=== PATIENT | female | born 1930 | race Caucasian/White ===

== ENCOUNTER 2017-07-23 09:29 | Inpatient (IN) | payer OTHER ==
[~2017-07-23] VITALS: Ht 158.8 cm; Wt 75.8 kg
[~2017-07-23 09:29] MED LIST: ALENDRONATE SOD70 M2 PO; AMLODIPINE BESY10 M1 PO; ASPIRIN EC81 M1 PO; BETIMOL5 M1 OPH; CALCIUM 600 +1 EAC2 PO; COSOPT OCUMETER10 ML OPH; COZAAR50 M1 PO; DORZOLAMIDE HYD10 ML OPH; ECOTRIN325 MG PO; FUROSEMIDE20 M1 PO; GELNIQUE100 MG/GM TOP; IMODIUM A-D2 M1 PO; LANTUS SOL100 UNIT/1 SC; LEVEMIR100 UNIT/1 SC; LEVOTHYROXIN0.137 MG PO; LEVOTHYROXINE0.15 MG PO; LEVOTHYROXINE137 MCG PO; LIDODERM 5% PAT1 PAT TOP; LOPRESSOR50 M1 PO; LOVASTATIN40 M1 PO; LUMIGAN 2.5 ML2.5 M1 OPH; MINITRAN1 EAC2 TOP; MYRBETRIQ25 M1 OPH; MYRBETRIQ50 M1 PO; NOVOLOG MI300 UNITS/; NOVOLOG100 UNIT/2 SC; PATANOL 5 ML5 ML OPH; PLAVIX75 M1 PO; PREDNISONE20 M1 PO; RESTASIS1 EACH OPH; TIMOLOL MALEATE10 M1 OPH; TOPCARE OMEPRAZ20 MG PO; TRAVATAN Z5 ML OPH; VITAMIN D250000 UNIT PO
--- NOTE | 2017-07-23 09:51 | ED GENERAL ADULT ---
History of Present Illness General Chief Complaint: Dyspnea (COPD, CHF, Other) Stated Complaint: SOB Source: patient, family Exam Limitations: no limitations Vital Signs & Intake/Output Vital Signs & Intake/Output Vital Signs Date Time Temp Pulse Resp B/P B/P Pulse O2 O2 Flow FiO2 Mean Ox Delivery Rate 07/23 2045 97.6 83 20 144/73 96 Nasal 1.0L Cannula 07/23 1802 97.3 84 18 148/62 98 Nasal 2.0L Cannula 07/23 1602 98.6 84 20 168/70 93 Nasal 2.0L Cannula 07/23 1556 80 19 140/71 95 Room Air 07/23 1335 97.2 82 22 132/66 93 Room Air 07/23 1135 98.2 74 22 149/70 93 Room Air 07/23 0952 96.8 73 18 138/65 94 Room Air Allergies Coded Allergies: NO KNOWN ALLERGIES (07/23/17) Reconcile Medications Amlodipine Besylate 10 MG TABLET 1 TAB PO DAILY BP (Reported) Aspirin (Ecotrin*) 81 MG TABLET.DR 1 TAB PO DAILY HEART/BLOOD (Reported) Brimonidine Tartrate/Timolol (Combigan Eye Drops) 0.2 %-0.5 % DROPS 1 DROP OU BID BOTH EYES (Reported) Calcium Carbonate/Vitamin D3 (Calcium 600 + Vit D Caplet) (Unknown Strength) TABLET (Unknown Dose) PO TID SUPPLEMENT (Reported) Cyclosporine (Restasis) 1 EACH DROPERETTE 1 GTT OPH BID BOTH EYES (Reported) Ergocalciferol (Vitamin D2) (Vitamin D2) 50,000 UNIT CAPSULE 1 CAP PO Q10D SUPPLEMENT (Reported) Furosemide 20 MG TABLET 1 TAB PO DAILY DIURETIC (Reported) Ibuprofen (Advil Liqui-Gels) 200 MG CAPSULE 2 CAP PO DAILY PRN PAIN/ INFLAMMATION (Reported) Insulin Aspart (Novolog) 100 UNIT/ML VIAL DM (Reported) Insulin Detemir (Levemir) 100 UNIT/ML VIAL 46 UNITS SC QAM DM (Reported) Levothyroxine Sodium 137 MCG TABLET 1 TAB PO DAILY AC hypothyroidism Loperamide HCl (Imodium A-D) 2 MG TABLET 1-3 TAB PO DAILY PRN IBS (Reported) Losartan Potassium (Cozaar) 50 MG TABLET 1 TAB PO DAILY BP (Reported) Lovastatin 40 MG TABLET 1 TAB PO DAILY CHOLESTEROL (Reported) with food Metoprolol Tartrate (Lopressor) 50 MG TABLET 1 TAB PO BID BP (Reported) Nitroglycerin (Minitran) 1 EACH PATCH.TD24 1 PATCH TOP DAILY PRN CHEST PAIN ( Reported) Nitroglycerin (Minitran) 0.4 MG/HOUR PATCH.TD24 1 PATCH TOP DAILY PRN CHEST PAIN (Reported) Travoprost (Travatan Z) 5 ML DROPS 1 GTT OPH QPM BOTH EYES (Reported) Wheat Dextrin (Benefiber) (Unknown Strength) POWDER (Unknown Dose) PO DAILY GI (Reported) Triage Nurses Notes Reviewed? yes Onset: Abrupt Duration: hour(s): Timing: recent history HPI: 07/23/17 11:44 AM 86-year-old female presents to the emergency department complaining of cough and difficulty breathing. The patient states that she had a lung biopsy 2 weeks ago. She has known metastatic breast cancer. She also has a Port-A-Cath in the left chest. She is had this for many years. She denies any fever. She admits to progressive worsening of cough and difficulty breathing. Concern was raised for pulmonary embolism. CT scan he has been ordered. She has a past medical history of metastatic breast CA. She has a past surgical history of hysterectomy, appendectomy, lumpectomy and lymph node resection on the right. Past History Medical History Any Pertinent Medical History? 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 Psychosocial History Who do you live with Spouse Services at Home None What is your primary language Uzbek Family History Family History, If Any: FATHER FHx: stroke Hx Contributory? No Review of Systems Review of Systems Constitutional: Denies: fever. EENTM: Denies: visual changes. Respiratory: Reports: cough, short of breath. Cardiovascular: Denies: chest pain. GI: Denies: abdominal pain. Genitourinary: Reports: no symptoms. Musculoskeletal: Reports: no symptoms. Skin: Denies: rash. Neurological/Psychological: Reports: no symptoms. Hematologic/Endocrine: Reports: no symptoms. Physical Exam Physical Exam General Appearance: alert, awake, anxious, moderate distress Head: atraumatic, normal appearance Eyes: Bilateral: normal appearance, PERRL, EOMI. Ears, Nose, Throat: normal pharynx, normal ENT inspection Neck: full range of motion Respiratory: decreased breath sounds, accessory muscle use, rhonchi Cardiovascular: regular rate/rhythm Peripheral Pulses: 4+ radial (R), 4+ radial (L) Gastrointestinal: soft, non-tender Back: decreased range of motion Extremities: pedal edema Neurologic/Psych: no motor/sensory deficits, awake, alert, oriented x 3 Skin: pallor Comments: She has a left anterior chest Port-A-Cath Core Measures ACS in differential dx? No CVA/TIA Diagnosis: No Sepsis Present: No Sepsis Focused Exam Completed? No Progress Differential Diagnoses I considered the following diagnoses in my evaluation of the patient: [ Bronchitis, pneumonia, pulmonary embolism, influenza] Plan of Care: Orders Procedure Date/time Status Heart Healthy Diet 07/24 B Active CBC WITHOUT DIFFERENTIAL 07/24 06 Active BASIC ELECTROLYTES PLUS BUN&CR 07/24 06 Active TROPONIN LEVEL 07/24 0300 Active TROPONIN LEVEL 07/23 2021 Active EKG 07/23 2021 Active LOWER RESPIRATORY CULTURE 07/23 2019 Active Pathway - chart 07/23 1848 Active House Staff 07/23 1848 Active Patient Data 07/23 1848 Active SPECIMEN TO BE OBTAINED 07/23 1848 Active Code Status 07/23 1848 Active Change service to 07/23 1821 Active Patient Data 07/23 1802 Active ED Holding Orders 07/23 1747 Active ED Holding Orders 07/23 1739 Active Admit to inpatient 07/23 1739 Active Vital Signs 07/23 1739 Active Code Status 07/23 1739 Complete Intake & Output 07/23 1029 Active RAPID VIRAL INFLUENZA A 07/23 1026 Complete D-DIMER 07/23 1026 Complete MAGNESIUM 07/23 1017 Complete B-TYPE NATRIURETIC PEP (BNP) 07/23 1017 Complete TROPONIN LEVEL 07/23 0939 Complete COMPREHENSIVE METABOLIC PANEL 07/23 0939 Complete CBC WITHOUT DIFFERENTIAL 07/23 0939 Complete EKG 07/23 0932 Active CONTIN. POSITIVE AIRWAY PRESS 07/23 UNK Active Lab Add-on Test 07/23 UNK Active VTE Mechanical Prophylaxis 07/23 UNK Active Vital Signs 07/23 UNK Active Intake & Output 07/23 UNK Active FingerStick- Glucose 07/23 UNK Active Activity/Ambulation 07/23 UNK Active EKG 07/23 UNK Active ECHOCARDIOGRAM 07/23 UNK Active Current Medications Sig/Tushar Start time Last Medication Dose Stop Time Status Admin Atorvastatin Calcium 10 MG 1700 07/24 1700 AC (Lipitor) Amlodipine Besylate 10 MG DAILY 07/24 1000 AC (Norvasc) Aspirin Buffered 81 MG DAILY 07/24 1000 AC (Ecotrin) Ceftriaxone Sodium 1,000 MG DAILY 07/24 1000 AC (Rocephin) Insulin Detemir 46 UNITS QAM 07/24 1000 AC (Levemir) Losartan Potassium 50 MG DAILY 07/24 1000 AC (Cozaar) Furosemide 40 MG 7:30 AM, & 4:30 PM 07/24 07 UNVr (Lasix) Levothyroxine Sodium 0.137 MG DAILY AC 07/24 0700 AC (Synthroid) Methylprednisolone 40 MG Q8 07/23 2199 UNVr (Solumedrol) Metoprolol Tartrate 50 MG BID 07/23 2199 AC (Lopressor) Sucralfate 1 GM 4 TIMES/DAY 07/23 2199 UNVr (Carafate Suspension) Calcium/Vitamin D 1 TAB DAILY 07/23 191 AC (Caltrate 600 + D) Enoxaparin Sodium 40 MG DAILY 07/23 184 AC (Lovenox) Laboratory Tests 07/23/17 2045: Troponin I Pending 07/23/17 1043: D-Dimer High Sensitivty 808 H 07/23/17 1017: Anion Gap 13, Estimated GFR > 60, BUN/Creatinine Ratio 21.3, Glucose 167 H, Calcium 8.4, Magnesium 1.6, Total Bilirubin 0.3, AST 31, ALT 26, Alkaline Phosphatase 109, Troponin I < 0.01, Evu-A-Faqhobmasmp Pept 1350 H, Total Protein 6.3, Albumin 3.1 L, Globulin 3.2, Albumin/Globulin Ratio 1.0 L, CBC w Diff NO MAN DIFF REQ, RBC 3.84 L, MCV 81.9, MCH 27.5, MCHC 33.6, RDW 13.4, MPV 7.4, Gran % 75.9 H, Lymphocytes % 13.1 L, Monocytes % 8.9, Eosinophils % 1.5, Basophils % 0.6, Absolute Granulocytes 4.3, Absolute Lymphocytes 0.7 L, Absolute Monocytes 0.5, Absolute Eosinophils 0.1, Absolute Basophils 0 Microbiology 07/23 2018 LOWER RESP: Respiratory Culture - ORD 07/23 2018 LOWER RESP: Gram Stain - ORD 07/23 1045 NASOPHARYN: Influenza Virus A & B Rapid Smear - COMP Initial ED EKG: NSR, nonspecific ST T wave chg Departure Departure Disposition: STILL A PATIENT Condition: Stable Clinical Impression Primary Impression: Pneumonia Secondary Impressions: Hypoxia Referrals: Simona Choi DO (PCP/Family) Departure Forms: Customer Survey General Discharge Information Comments PATIENT: JERRICA LOERA PRESENT AGE: 86 PATIENT ACCOUNT NO: [id number] : 31 LOCATION: [facility] ORDERING PHYSICIAN: Jace Bello DO SERVICE DATE: 07/23/17 EXAM TYPE: CAT - CTA CHEST-PULMONARY EMBOLISM EXAMINATION: CT ANGIOGRAM OF THE CHEST WITH AND WITHOUT CONTRAST (CT PULMONARY ANGIOGRAM FOR PE) CLINICAL INFORMATION: Shortness of breath. Elevated d-dimer. COMPARISON: CT chest dated 01/09/2014 TECHNIQUE: Prior to contrast administration, noncontrast localization images were obtained. Subsequently, multidetector volumetric imaging was performed from the thoracic inlet to below the diaphragms following the administration of 95 mL Optiray 350 intravenous contrast. No contrast reaction reported. Sagittal, coronal, and MIP oblique sagittal reformatted images were obtained on the CT workstation, uploaded to PACS, and reviewed. Total exam dose-length product 531.95 mGy-cm. FINDINGS: QUALITY OF STUDY/CONTRAST BOLUS: Satisfactory PULMONARY ARTERIES: No central or segmental pulmonary emboli. THORACIC AORTA: No evidence of aneurysm or dissection. Atherosclerotic disease of the aorta and the coronary arteries. LUNG: Calcified granuloma noted again in the right upper lobe (series 3 image 9) and to lesser extent right middle lobe patchy groundglass attenuation, tree in bud centrilobular nodules and mild bronchial wall thickening noted in the right upper lobe. Findings may represent evolving bronchopneumonia. Clinical correlation recommended. Subtle lobulated groundglass nodular opacity right upper lobe best visualized on coronal image 40/92 measuring approximately 0.9 cm. This may be secondary to nodular infiltrate. This represents an interval change. Atelectatic and fibrotic changes noted in the subpleural location right upper lobe and right middle lobe with associated bronchiectasis. Compression atelectasis bilateral lower lobes. Subtle nodular density measuring approximately 0.4 cm superior segment right lower lobe (series 3 image 21). This was also seen on the previous examination with no significant interval change. Subtle plaque-like nodular opacities along the left major fissure likely representing fissure lymph nodes. PLEURA: Interval development of small to moderate bilateral pleural effusions. MEDIASTINUM: Normal heart size. Trace pericardial effusion. Enlarged right paratracheal, AP window and right hilar lymph nodes. These demonstrate interval prominence compared to the prior examination.. No evidence of septal bowing or right heart strain. Left-sided Port-A-Cath with the tip likely at the cavoatrial junction. Evaluation of the left hip is limited due to presence of contrast. CHEST WALL/AXILLA: No axillary or internal mammary lymphadenopathy. OSSEOUS STRUCTURES: Ill-defined sclerotic change right lateral aspect T9 vertebra (sagittal image 56/108) represents an interval change. Sclerotic metastases cannot be excluded. Interval development of mild compression with slight concavity of the superior endplate T12 vertebra.. UPPER ABDOMEN: Interval mild enlargement of the lymph nodes anterior to the GE junction. Mildly enlarged periportal lymph nodes. Adrenal glands are within normal limits. No reflux of contrast into the hepatic veins to suggest elevated right heart pressures. IMPRESSION: 1. There is no definite CTA evidence of acute pulmonary embolism. 2. Nodular patchy groundglass attenuation noted in the right upper lobe and to a lesser extent right middle lobe may represent evolving pneumonia in the appropriate clinical setting. Lobulated groundglass nodule right upper lobe measuring 0.9 cm may be secondary to the patchy nodular infiltrate or pneumonia. However, neoplastic process cannot be entirely excluded. Follow-up CT chest after treatment is therefore recommended. Stable granulomas right lung. 3. Fibrotic changes and mild bronchiectasis right upper lobe and right middle lobe. Interval development of bilateral pleural effusions, left greater than right. 4. Interval development of mild mediastinal and right hilar lymphadenopathy. Enlarged upper abdominal lymph nodes. These findings should also be assessed on follow-up CT chest PET/CT. 5. Subtle sclerotic changes right lateral aspect T9 vertebra. Sclerotic metastases cannot be entirely excluded. Age indeterminate mild compression with concavity of the superior endplate T12 vertebra. VTE: negative DICTATED BY: Domenico Mejia MD DATE/TIME DICTATED:07/23/171326 FAITH HEALER:JOHANA DATE/TIME TRANSCRIBED:07/23/171326 CONFIDENTIAL, DO NOT COPY WITHOUT APPROPRIATE AUTHORIZATION. <Electronically signed in Other Vendor System> SIGNED BY: Domenico Mejia MD 07/23/17 8886 Admission Note Spoke With: Domi Carrillo MD Documentation of Exam: Documentation of any treatments & extenuating circumstances including Concerns Regarding Discharge (functional status, medication knowledge or non-compliance, living conditions, etc.) that warrant an admission rather than observation: [The patient needs admission for IV antibiotics, albuterol nebulizer treatments, oxygen, consider pulmonary consultation. Her oxygen saturation drops into the 80s with minimal exertion.] Critical Care Note Critical Care Note Critical Care Time: 30-74 min
[2017-07-23 10:23] LABS: ABSOLUTE BASOPHIL COUNT 0 /CUMM (0.0-0.2); ABSOLUTE EOSINOPHIL COUNT 0.1 /CUMM (0.0-0.7); ABSOLUTE GRANULOCYTE CT 4.3 /CUMM (1.4-6.5); ABSOLUTE LYMPH COUNT 0.7 /CUMM (1.2-3.4); ABSOLUTE MONOCYTE COUNT 0.5 /CUMM (0.10-0.60); BASOPHIL % 0.6 % (0.0-2.0); EOSINOPHIL % 1.5 % (0-5); GRANULOCYTE % 75.9 % (42.2-75.2); HEMATOCRIT 31.4 % (37-47); MEAN CORPUSCULAR HGB 27.5 PG (27.0-31.0); MEAN CORPUSCULAR HGB CONC 33.6 G/DL (33.0-37.0); MEAN CORPUSCULAR VOLUME 81.9 FL (81.0-99.0); MEAN PLATELET VOLUME 7.4 FL (7.4-10.4); PLATELET COUNT 332 /CUMM (130-400); RBC DISTRIBUTION WIDTH 13.4 % (11.5-14.5); RED BLOOD CELL CT 3.84 /CUMM (4.20-5.40); WHITE BLOOD CELL COUNT 5.7 /CUMM (4.8-10.8)
--- NOTE | 2017-07-23 11:40 | RADIOLOGY REPORT ---
EXAMINATION: XR PORTABLE CHEST CLINICAL INFORMATION: Shortness of breath COMPARISON: Multiple prior chest x-rays most recent prior dated 07/22/2017 TECHNIQUE: Portable frontal view of the chest was obtained. FINDINGS: Left-sided Port-A-Cath with the tip at the cavoatrial junction. Stable cardiomediastinal silhouette. Prominence of the pulmonary and bronchial markings bilateral lungs and straight interval prominence. Streaky opacity right perihilar region slightly increased compared to the prior study. Stable subtle opacity left base retrocardiac region. Stable subsegmental atelectasis noted in the right midlung. IMPRESSION: 1. Interval worsening bronchial wall thickening consistent with reactive small airway disease or bronchitis. 2. Increasing streaky infiltrate or atelectasis right hilar/perihilar region. 3. Stable opacity retrocardiac region left base. 4. Stable discoid atelectasis right midlung.
--- NOTE | 2017-07-23 13:54 | CT SCAN REPORT ---
EXAMINATION: CT ANGIOGRAM OF THE CHEST WITH AND WITHOUT CONTRAST (CT PULMONARY ANGIOGRAM FOR PE) CLINICAL INFORMATION: Shortness of breath. Elevated d-dimer. COMPARISON: CT chest dated 01/09/2014 TECHNIQUE: Prior to contrast administration, noncontrast localization images were obtained. Subsequently, multidetector volumetric imaging was performed from the thoracic inlet to below the diaphragms following the administration of 95 mL Optiray 350 intravenous contrast. No contrast reaction reported. Sagittal, coronal, and MIP oblique sagittal reformatted images were obtained on the CT workstation, uploaded to PACS, and reviewed. Total exam dose-length product 531.95 mGy-cm. FINDINGS: QUALITY OF STUDY/CONTRAST BOLUS: Satisfactory PULMONARY ARTERIES: No central or segmental pulmonary emboli. THORACIC AORTA: No evidence of aneurysm or dissection. Atherosclerotic disease of the aorta and the coronary arteries. LUNG: Calcified granuloma noted again in the right upper lobe (series 3 image 9) and to lesser extent right middle lobe patchy groundglass attenuation, tree in bud centrilobular nodules and mild bronchial wall thickening noted in the right upper lobe. Findings may represent evolving bronchopneumonia. Clinical correlation recommended. Subtle lobulated groundglass nodular opacity right upper lobe best visualized on coronal image 40/92 measuring approximately 0.9 cm. This may be secondary to nodular infiltrate. This represents an interval change. Atelectatic and fibrotic changes noted in the subpleural location right upper lobe and right middle lobe with associated bronchiectasis. Compression atelectasis bilateral lower lobes. Subtle nodular density measuring approximately 0.4 cm superior segment right lower lobe (series 3 image 21). This was also seen on the previous examination with no significant interval change. Subtle plaque-like nodular opacities along the left major fissure likely representing fissure lymph nodes. PLEURA: Interval development of small to moderate bilateral pleural effusions. MEDIASTINUM: Normal heart size. Trace pericardial effusion. Enlarged right paratracheal, AP window and right hilar lymph nodes. These demonstrate interval prominence compared to the prior examination.. No evidence of septal bowing or right heart strain. Left-sided Port-A-Cath with the tip likely at the cavoatrial junction. Evaluation of the left hip is limited due to presence of contrast. CHEST WALL/AXILLA: No axillary or internal mammary lymphadenopathy. OSSEOUS STRUCTURES: Ill-defined sclerotic change right lateral aspect T9 vertebra (sagittal image 56/108) represents an interval change. Sclerotic metastases cannot be excluded. Interval development of mild compression with slight concavity of the superior endplate T12 vertebra.. UPPER ABDOMEN: Interval mild enlargement of the lymph nodes anterior to the GE junction. Mildly enlarged periportal lymph nodes. Adrenal glands are within normal limits. No reflux of contrast into the hepatic veins to suggest elevated right heart pressures. IMPRESSION: 1. There is no definite CTA evidence of acute pulmonary embolism. 2. Nodular patchy groundglass attenuation noted in the right upper lobe and to a lesser extent right middle lobe may represent evolving pneumonia in the appropriate clinical setting. Lobulated groundglass nodule right upper lobe measuring 0.9 cm may be secondary to the patchy nodular infiltrate or pneumonia. However, neoplastic process cannot be entirely excluded. Follow-up CT chest after treatment is therefore recommended. Stable granulomas right lung. 3. Fibrotic changes and mild bronchiectasis right upper lobe and right middle lobe. Interval development of bilateral pleural effusions, left greater than right. 4. Interval development of mild mediastinal and right hilar lymphadenopathy. Enlarged upper abdominal lymph nodes. These findings should also be assessed on follow-up CT chest PET/CT. 5. Subtle sclerotic changes right lateral aspect T9 vertebra. Sclerotic metastases cannot be entirely excluded. Age indeterminate mild compression with concavity of the superior endplate T12 vertebra. VTE: negative
[2017-07-23] MEDS ORDERED: ADVIL LIQUI-GE200 M1 PO (16:27)
[2017-07-23] MEDS ORDERED: NOVOLOG100 UNIT/1 SC (16:30)
[2017-07-23] MEDS ORDERED: LEVEMIR100 UNIT/1 SC (16:30)
[2017-07-23] MEDS ORDERED: COMBIGAN EYE DRO5 ML OU (16:33)
[2017-07-23] MEDS ORDERED: BENEFIBER152 GM PO (16:34)
[2017-07-23] MEDS ORDERED: MINITRAN1 EAC2 TOP (16:36)
[2017-07-23] MEDS ORDERED: NOVOLOG100 UNIT/2 SC (16:48)
--- NOTE | 2017-07-23 18:15 | History & Physical ---
Lela MASTERSONPreethi 07/23/175: General Information and [facility] MD Statement: I have seen and personally examined JERRICA LOERA and documented this H&P. 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 History is obtained mostly from the patient's daughter as the patient states that she is too short of breath to speak. Patient was diagnosed with breast cancer 14 years ago and was in remission until recently when she found that it had spread to the bone and brain. 2 weeks ago she had a chest lymph node biopsy of 100 samples taken at [facility]. Following this is when her symptoms began. The patient saw her engraved roller inspector Dr. Rock (whom she sees for her hypertension) yesterday who sent her for an x-ray due to her shortness of breath that was worse on lying down and on exertion. It was also noted that she had lower leg swelling. According to Dr. Rock the shortness of breath was possibly due to the biopsy or was a surgical pneumonia. Today she went to follow-up with her PCP at noon and her breathing was worse with her noting that she was gasping for air. Because of this she was sent to the ED. The patient also states that she has recently felt "drained". The patient has never had breathing issues before. However she notes that her recent shortness of breath on lying down is worse than ever and forces her to sleep propped up as lying down fully causes severe anxiety. She states that when she takes the Ativan she is able to lie down fully. She denies any fever, chills, dizziness, loss of consciousness, constipation. She does admit to some chest pain one week ago around the time that she found out the cancer had spread. She also does admit to chronic diarrhea associated with her irritable bowel syndrome. The patient also states that today she had a droopy left side of her face and her daughter notes that she was cognitively "off" when she is usually sharp. As stated, the patient recently was found to have brain metastases. She saw her oncologist Dr. Walker a week ago. Her PCP is Dr. Choi. The patient has progesterone negative, estrogen positive breast cancer that has spread to the bone and brain. The patient is usually compliant with medications. The patient was to start exemestane this weekend. She had previously taken this medication for a 5 year course years ago and because of this medication she was successfully in remission for a number of years. When she had first found out about her breast cancer, she had 72 rounds of radiation and chemotherapy and was put on arimidex which made her extremely weak and nauseous. She was then started on exemestane and was in remission for 7 years. The patient usually uses a Rollator with seat. She complains of chronic bone pain especially in the hips. The patient has been eating well and has a good appetite. The patient lives with her daughter and son-in-law. She does not drink, smoke, or do drugs. She did get the flu shot this year. Allergies/Medications Allergies: Coded Allergies: NO KNOWN ALLERGIES (07/23/17) Home Med list Amlodipine Besylate 10 MG TABLET 1 TAB PO DAILY BP (Reported) Aspirin (Ecotrin*) 81 MG TABLET.DR 1 TAB PO DAILY HEART/BLOOD (Reported) Brimonidine Tartrate/Timolol (Combigan Eye Drops) 0.2 %-0.5 % DROPS 1 DROP OU BID BOTH EYES (Reported) Calcium Carbonate/Vitamin D3 (Calcium 600 + Vit D Caplet) (Unknown Strength) TABLET (Unknown Dose) PO TID SUPPLEMENT (Reported) Cyclosporine (Restasis) 1 EACH DROPERETTE 1 GTT OPH BID BOTH EYES (Reported) Ergocalciferol (Vitamin D2) (Vitamin D2) 50,000 UNIT CAPSULE 1 CAP PO Q10D SUPPLEMENT (Reported) Furosemide 20 MG TABLET 1 TAB PO DAILY DIURETIC (Reported) Ibuprofen (Advil Liqui-Gels) 200 MG CAPSULE 2 CAP PO DAILY PRN PAIN/ INFLAMMATION (Reported) Insulin Aspart (Novolog) 100 UNIT/ML VIAL DM (Reported) Insulin Detemir (Levemir) 100 UNIT/ML VIAL 46 UNITS SC QAM DM (Reported) Levothyroxine Sodium 137 MCG TABLET 1 TAB PO DAILY AC hypothyroidism Loperamide HCl (Imodium A-D) 2 MG TABLET 1-3 TAB PO DAILY PRN IBS (Reported) Losartan Potassium (Cozaar) 50 MG TABLET 1 TAB PO DAILY BP (Reported) Lovastatin 40 MG TABLET 1 TAB PO DAILY CHOLESTEROL (Reported) with food Metoprolol Tartrate (Lopressor) 50 MG TABLET 1 TAB PO BID BP (Reported) Nitroglycerin (Minitran) 1 EACH PATCH.TD24 1 PATCH TOP DAILY PRN CHEST PAIN ( Reported) Nitroglycerin (Minitran) 0.4 MG/HOUR PATCH.TD24 1 PATCH TOP DAILY PRN CHEST PAIN (Reported) Travoprost (Travatan Z) 5 ML DROPS 1 GTT OPH QPM BOTH EYES (Reported) Wheat Dextrin (Benefiber) (Unknown Strength) POWDER (Unknown Dose) PO DAILY GI (Reported) Compliance With Home Meds: GOOD Past History Travel History Traveled to [place] past 21 day No Medical History Neurological: vertigo, TIA, BELLSPALSY EENT: NONE Cardiovascular: CAD, hypertension, hyperlipidemia Respiratory: NONE Gastrointestinal: NONE Hepatic: NONE Renal: NONE Musculoskeletal: NONE Psychiatric: NONE Endocrine: hypothyroidism, IDDM Blood Disorders: NONE Cancer(s): BREAST CA WITH BONE METS 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 Past Family/Social History Family History Relations & Conditions if any FATHER FHx: stroke Psychosocial History Services at Home: None ETOH Use: denies use Illicit Drug Use: denies illicit drug use Review of Systems Review of Systems Constitutional: Reports: malaise, weakness. EENTM: Reports: no symptoms. Cardiovascular: Reports: chest pain, edema, orthopena. Respiratory: Reports: cough, orthopnea, short of breath, sputum production. GI: Reports: diarrhea. Genitourinary: Reports: no symptoms. Musculoskeletal: Reports: joint pain. Skin: Reports: no symptoms. Neurological/Psychological: Reports: anxiety. Hematologic/Endocrine: Reports: no symptoms. Immunologic/Allergic: Reports: no symptoms. All Other Systems: Reviewed and Negative Exam & Diagnostic Data Last 24 Hrs of Vital Signs/I&O Vital Signs Date Time Temp Pulse Resp B/P B/P Pulse O2 O2 Flow FiO2 Mean Ox Delivery Rate 07/24 0000 Nasal 2.0L Cannula 07/23 2338 75 144/60 07/23 2151 98.6 75 20 144/60 96 Nasal 2.0L Cannula 07/23 2100 Nasal 2.0L Cannula 07/23 2046 97.6 83 20 144/73 96 Nasal 1.0L Cannula 07/23 1802 97.3 84 18 148/62 98 Nasal 2.0L Cannula 07/23 1602 98.6 84 20 168/70 93 Nasal 2.0L Cannula 07/23 1556 80 19 140/71 95 Room Air 07/23 1335 97.2 82 22 132/66 93 Room Air 07/23 1135 98.2 74 22 149/70 93 Room Air 07/23 0952 96.8 73 18 138/65 94 Room Air Intake & Output 07/24 0800 07/24 0000 07/23 1600 Intake Total 490 Output Total Balance 490 Intake, IV 10 Intake, Oral 480 Number 0 Bowel Movements Patient 167 lb 167 lb Weight Weight Reported by Patient Reported by Patient Measurement Method Physical Exam General Appearance Alert, Oriented X3, Cooperative, No Acute Distress Skin No Rashes, No Breakdown, No Significant Lesion Skin Temp/Moisture Exam: Warm/Dry Sepsis Skin Exam (color): Normal for Ethnicity HEENT Atraumatic, PERRLA, EOMI, Mucous Membr. moist/pink Neck Supple Cardiovascular Regular Rate, Normal S1, Normal S2, No Murmurs, left port Lungs rhonchi, accessory muscle use Abdomen Normal Bowel Sounds, Soft, No Tenderness, No Hepatospenomegaly, No Masses Neurological Normal Speech Extremities No Clubbing, No Cyanosis, No Edema, Normal Pulses, No Tenderness/ Swelling Vascular Normal Pulses Last 24 Hrs of Labs/Andrea: Laboratory Tests 07/24/17 0300: Troponin I Cancelled 07/23/17 2045: Troponin I < 0.01 07/23/17 1043: D-Dimer High Sensitivty 808 H 07/23/17 1017: Anion Gap 13, Estimated GFR > 60, BUN/Creatinine Ratio 21.3, Glucose 167 H, Calcium 8.4, Magnesium 1.6, Total Bilirubin 0.3, AST 31, ALT 26, Alkaline Phosphatase 109, Troponin I < 0.01, Vip-Z-Nwrqmrzcbia Pept 1350 H, Total Protein 6.3, Albumin 3.1 L, Globulin 3.2, Albumin/Globulin Ratio 1.0 L, CBC w Diff NO MAN DIFF REQ, RBC 3.84 L, MCV 81.9, MCH 27.5, MCHC 33.6, RDW 13.4, MPV 7.4, Gran % 75.9 H, Lymphocytes % 13.1 L, Monocytes % 8.9, Eosinophils % 1.5, Basophils % 0.6, Absolute Granulocytes 4.3, Absolute Lymphocytes 0.7 L, Absolute Monocytes 0.5, Absolute Eosinophils 0.1, Absolute Basophils 0 Microbiology 07/23 2018 LOWER RESP: Respiratory Culture - ORD 07/23 2018 LOWER RESP: Gram Stain - ORD 07/23 1045 NASOPHARYN: Influenza Virus A & B Rapid Smear - COMP Assessment/Plan Assessment: Patient is an 86-year-old female with a past medical history significant for 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 Patient was diagnosed with breast cancer 14 years ago and was in remission until recently when she found that it had spread to the bone and brain. 2 weeks ago she had a chest lymph node biopsy of 100 samples taken at [facility]. Following this is when her symptoms began. Patient was set to start with cancer chemotherapy by mouth medication on wednesday. She had recently taken this medication to good effect. EKG shows sinus rhythm at a rate of 75 with a QTC of 505 and poor R-wave progression also seen are J waves (see Tena waves). Labs were pertinent for sodium of 134, potassium 3.9, creatinine 0.8, calcium 8.4, albumin 3.1, BNP 1350 , normal liver function tests, magnesium 1.6. Patient was found to be an influenza negative. Vitals were within normal limits with a oxygen saturation of 96% on 2 L nasal cannula. WBCs are 5.7 and hemoglobin is 10.6, patient has chronic anemia. D-dimer was found to be 808 with normal PT/INR and PTT. #SOB: May be caused by pneumonia, vascular congestion, cancer spread, recent manipulation of lymphatic drainage from the chest. -ProBNP 1350 -A lower respiratory sputum Gram stain and culture were sent -Begin azithromycin 250mg daily and ceftriaxone 1g daily -Last echocardiogram showed an ejection fraction of 55-65% -She will get 20 mg of lasix daily. -We will also give her Solumedrol 40mg bid -Mucinex bid for cough. -CTA showed no definite evidence of PE, Nodular patchy groundglass attenuation noted in the right upper lobe and to a lesser extent right middle lobe may represent evolving pneumonia in the appropriate clinical setting. Also interval development of mild mediastinal and right hilar lymphadenopathy and enlarged upper abdominal lymph nodes. -CXR showed increasing streaky infiltrate or atelectasis right hilar/perihilar region. -Mucinex for cough #Abnormal electrocardiogram: J waves seen especially in lead II. These are pathological and associated with hypothermia, hypercalcemia, brain injury, vasospastic angina, and V. fib. The patient does have a history of metastases to the brain and this may be the cause of her abnormal EKG -Calcium level is normal #Breast cancer with metastases to the bone and brain and possibly lung -We will consult oncology. Of note the patient would NOT like to see Dr. Freire. Apparently he was her first oncologist and she would not like to work with him and wants us to record this. -Follow up the results of her outpatient lung lymph node biopsy -Patient would benefit from a PET scan if she has already not had one. -We will try to obtain patient's medical records and scans from her cancer doctor, Dr. Walker at [facility]. #Hypertension -Continue amlodipine 10 mg and Cozaar 50 mg daily and metoprolol 50 mg twice a day #Diabetes mellitus -Sugar on admission is 167 -Hemoglobin A1c -Patient is on Levemir 46 units every morning with NovoLog sliding scale Patient is full code Heart healthy diet DVT prophylaxis with Alps As Ranked By This Provider Problem List: 1. Pneumonia 2. Hx of TIA (transient ischemic attack) and stroke 3. Metastatic breast cancer Core Measures/Misc (02/28) Acute Coronary Syndrome ACS Diagnosis: No Congestive Heart Failure Congestive Heart Failure Diagnosis No Cerebrovascular Accident CVA/TIA Diagnosis: No VTE (View Protocol) VTE Risk Factors Age>40 No Mechanical VTE Prophylaxis d/t N/A MechProphylax Ordered No VTE Pharm Prophylaxis d/t NA PharmProphylax ordered Sepsis (View protocol) Sepsis Present: No Kristal Oconnell MD 07/23/17 1844: Resident Review Statement Resident Statement: examined this patient, discussed with real estate intern, agreed with real estate intern, discussed with family, reviewed EMR data (avail), discussed with nursing , discussed with case mgmt, reviewed images, amended to note Other Findings: Patient is a 86 YO F with PMH significant for metastatic breast cancer ER positive & OR negative, HTN, chronic venous insufficiency, DM, HTN presented with progressive worsening of dyspnea with exertion & at rest along with dry cough. She had a lung biopsy 2 weeks ago followed by which she started to experience sore throat and cough. Yesterday she visited where she was evaluated for chest x-ray which did show fluid with atelectasis. Today she was scheduled to go to her PCP however became extremely short of breath while walking to restroom twice which prompted her to come to ER for further evaluation. Vitals at presentation afebrile, heart rate 70, blood pressure 140/60 mmHg, saturating on room air. Physical examination alert oriented 3 leaning towards left side. Heart S1-S2 normal systolic murmur present, lungs rhonchi on the left greater than right decreased air entry on the right side. Bilateral lower extremity 2+ pitting edema present Labs no leukocytosis, D-dimer 808, Na 134, glucose 167, LFTs normal, troponin neg. ProBNP 1350. CXR: interval worsening bronchial wall thickening reactive small airway disease or bronchitis. Increasing streaky infiltrate in right hilar/perihilar region. CTA: no PE. Nodular patchy groundglass in RUL and RML evolving pneumonia. Nodular infiltrate RUL possible neoplastic process. Fibrotic changes and mild bronchiectasis right upper and middle lobe with bilateral pleural effusions L>R. Lymphadenopathy. EKG: SR. Echo (2016): EF 55-60%, moderate aortic stenosis with valve area 1.3 cm sq. Assessment Patient is a 86-year-old female with significant metastatic breast cancer to bone and brain, IBS, CAD, presented with progressive worsening of shortness of breath and cough, orthopnea status post lung and lymph node biopsy 2 weeks ago at [facility]. Vital signs, physical examination are consistent with rhonchorous breath sounds on the lungs with 2+ pitting edema. Labs did show d-dimer elevation however CTA rule out PE. She did have some leukocytosis with elevated proBNP. Chest x-ray significant for bronchial wall thickening with increased streaky infiltrates in the right hilar region. CT angio right upper lobe and right middle lobe nodular opacities and mild bronchiectasis -- which could signify acute pulmonary pathology. Differentials Broad in an immunocompromised patient with possible lung metastasis. It could be acute onset worsening of breathing, possibly lung malignancy compressing surrounding tissue resulting in increased shortness of breath, acute infection likely pneumonia from the procedure without fevers/white count given immunosuppressed state, possible strain on the heart in the setting of worsening overall pulmonary condition. Plan Admit to general medicine floor Exertional dyspnea with orthopnea - likely infection versus cardiac etiology I'm concerned about a pneumonia in this patient given immunosuppressed state but at the same time more leaning towards bronchitis or biopsy related injury to the lung. She does have a which can exacerbate the clinical picture. * Start IV ceftriaxone and azithromycin * Obtain lower aspect cultures and blood cultures * Mucinex and Chloraseptic lozenges * Echo and cardiology consult * Consider short steroid taper after one dose of IV methylprednisone Continue home medications including aspirin 81 mg, amlodipine 10 mg, loperamide 2 mg, furosemide 20 mg, metoprolol tartrate 50 mg twice a day DVT prophylaxis SC heparin CODE STATUS Full code Dmitriy MASTERSON, [facility] 07/24/17 0738: Attending MD Review Statement Attending Statement Attending MD Statement: examined this patient, discuss w/resident/PA/CLINICAL OPERATIONS SPECIALIST, agreed w/resident/PA/CLINICAL OPERATIONS SPECIALIST, discussed with family, reviewed images, amended to note Attending Assessment/Plan: 86 yo F with h/o TIA, HTN, Wagner's palsy, T2DM, chronic LE edema on lasix, IBS, ? 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 She follows with Dr. Walker (Oncologist) and is scheduled to being extimestane (oral chemo). She underwent LN and lung biopsy (bronchoscopy) on Jul 09 results of which showed ER+, OR-. However, for the past 1 week, she has had increasing exertional dyspnea, cough productive of white phlegm and sore throat. This is associated with chest tightness especially on coughing. She was seen by Dr. Rock, who did a CXR that showed small left pleural effusion and atelectasis. There was a concern for PE, hence she was asked to come to ER for further evaluation. Vitals: afebrile, HR 70-80's, BP 144/60, sats 93% RA --> 96% on 2L. O2 sats dropped to 80's on exertion. Exam: Chest scattered rhonchi on the R>L, otherwise clear. Able to speak in short sentences. Left chest Por-a-cath++. Heart S1S2 regular, systolic murmur++. LE: trace edema+. Labs no leukocytosis, D-dimer 808, Na 134, glucose 167, LFTs normal, troponin neg. ProBNP 1350. CXR: interval worsening bronchial wall thickening reactive small airway disease or bronchitis. Increasing streaky infiltrate in right hilar/perihilar region. CTA: no PE. Nodular patchy groundglass in RUL and RML evolving pneumonia. Nodular infiltrate RUL possible neoplastic process. Fibrotic changes and mild bronchiectasis right upper and middle lobe with bilateral pleural effusions L>R. Lymphadenopathy. EKG: SR. Echo (2016): EF 55-60%, moderate aortic stenosis with valve area 1.3 cm sq. Assessment and plan: 1. Acute hypoxic respiratory failure 2. Dyspnea is multifactorial with acute bronchitis and developing pneumonia in this patient with lung metastasis from primary breast cancer, recent bronchoscopy might be the inciting event and associated bilateral pleural effusions. She also has moderate aortic stenosis which could also be attributing to her symtoms, cannot rule out CHF. 3. Breast cancer now metastatic to skull, pelvis, spine and lungs 4. Essential hypertension - Admit to General medicine - TRC nebs - Sputum culture and blood cultures - IV ceftriaxone and azithromycin - Rapid prednisone taper - Robitussin or mucinex - Add chlorseptic lozenges - Pulm consult - Obtain echo cardiogram and Cardio consult - Repeat EKG and troponin - Continue lasix home dose - Consider Oncology consult as needed (Dr. Walker). - Diabetes management DVT ppx Lovenox. Full code.
[2017-07-23 21:51] VITALS: BP 144/60
[2017-07-24 07:16] VITALS: BP 138/66
--- NOTE | 2017-07-24 07:39 | Admission Certification ---
Admission Certification Certification Statement - As attending physician, I certify that at the time of - admission, based on clinical presentation, severity of - symptoms, need for further diagnostic testing and - therapeutic interventions, and risk of adverse outcomes - without in-hospital treatment, in my clinical assessment, - this patient requires an acute hospital stay for a minimum - of two nights or longer. I have also considered psychsocial - factors such as support system, advanced age, financial - issues, cognitive issues, and failed out-patient treatments, - past re-admission history, safety of patient, and lack of - compliance as applicable. Specific rationale supporting this admission is: Acute hypoxic respiratory failure, acute bronchitis, community acquired pneumonia and bilateral pleural effusions in this patient with underlying lung metastasis from primary breast cancer.
--- NOTE | 2017-07-24 08:23 | PN- Housestaff ---
Anish MASTERSON,Kristal 07/24/17 0822: Subjective Follow-up For: Dyspnea on exertion Metastatic breast cancer CAD DM Subjective: Showering, stable. Review of Systems Constitutional: Reports: see HPI. Objective Last 24 Hrs of Vital Signs/I&O Vital Signs Date Time Temp Pulse Resp B/P B/P Pulse O2 O2 Flow FiO2 Mean Ox Delivery Rate 07/24 0716 97.8 74 20 138/66 94 02 0000 Nasal 2.0L Cannula 07/23 2338 75 144/60 07/23 2151 98.6 75 20 144/60 96 Nasal 2.0L Cannula 07/23 2100 Nasal 2.0L Cannula 07/23 2046 97.6 83 20 144/73 96 Nasal 1.0L Cannula 07/23 1802 97.3 84 18 148/62 98 Nasal 2.0L Cannula 07/23 1602 98.6 84 20 168/70 93 Nasal 2.0L Cannula 07/23 1556 80 19 140/71 95 Room Air 07/23 1335 97.2 82 22 132/66 93 Room Air 07/23 1135 98.2 74 22 149/70 93 Room Air 07/23 0952 96.8 73 18 138/65 94 Room Air Intake & Output 07/24 1600 07/24 0800 07/24 0000 Intake Total 330 490 Output Total Balance 330 490 Intake, IV 90 10 Intake, Oral 240 480 Number 0 0 Bowel Movements Patient 75.75 kg Weight Weight Reported by Patient Measurement Method Physical Exam General Appearance: Alert, Oriented X3, Cooperative Other Physical Findings: Unable to perform Current Medications: Current Medications Sig/Tushar Start time Last Medication Dose Route Stop Time Status Admin Acetaminophen 1,000 MG ONCE ONE 07/23 1630 DC 07/23 IV 07/23 1631 1635 Acetaminophen 0 .STK-MED ONE 07/23 1610 DC IV Albuterol Sulfate 3 ML ONCE ONE 07/23 1630 DC 07/23 INH 07/23 1631 1647 Amlodipine Besylate 10 MG DAILY 07/24 1000 AC PO Aspirin Buffered 81 MG DAILY 07/24 1000 AC PO Atorvastatin Calcium 10 MG 1700 07/24 1700 AC PO Azithromycin 500 MG DAILY 07/24 1000 AC Dextrose/Water 250 ML IV Azithromycin 500 MG ONCE ONE 07/23 1630 DC 07/23 Dextrose/Water 250 ML IV 07/23 1729 1700 Benzocaine/Menthol 1 MICHAEL Q2P PRN 07/23 2345 AC 07/24 PO 0555 Calcium/Vitamin D 1 TAB DAILY 07/23 1917 AC PO Ceftriaxone Sodium 1,000 MG DAILY 07/24 1000 AC IV Ceftriaxone Sodium 0 .STK-MED ONE 07/23 1651 DC .ROUTE Ceftriaxone Sodium 1,000 MG ONCE ONE 07/23 1630 DC 07/23 IV 07/23 1631 1700 Enoxaparin Sodium 0 .STK-MED ONE 07/23 1930 DC SC Enoxaparin Sodium 40 MG DAILY 07/23 1848 AC SC Furosemide 20 MG DAILY 07/24 1000 AC PO Furosemide 40 MG 7:30 AM, & 4:30 PM 07/24 0730 CAN IV Furosemide 20 MG DAILY 07/23 1917 DC PO Guaifenesin 600 MG Q12 07/23 2346 AC PO Heparin Sodium 500 UNIT ONCE ONE 07/24 0645 DC 07/24 (Porcine) IV 07/24 0646 0715 Heparin Sodium 100 UNIT ONCE ONE 07/24 0615 CAN (Porcine) IV 07/24 0616 Insulin Detemir 46 UNITS QAM 07/24 1000 AC SC Ipratropium [place] 2.5 ML ONCE ONE 07/23 1630 DC 07/23 INH 07/23 1631 1647 Levothyroxine Sodium 0.137 MG DAILY AC 07/24 0700 AC 07/24 PO 0555 Lidocaine 0 .STK-MED ONE 07/23 2116 DC .ROUTE Losartan Potassium 50 MG DAILY 07/24 1000 AC PO Methylprednisolone 40 MG Q12H 07/24 0600 DC 07/24 IV 07/24 1801 0555 Methylprednisolone 40 MG Q12 07/23 2350 DC IV 07/24 1001 Methylprednisolone 40 MG Q8 07/23 2200 CAN IV Methylprednisolone 0 .STK-MED ONE 07/23 1651 DC .ROUTE Methylprednisolone 125 MG ONCE ONE 07/23 1630 DC 07/23 IV 07/23 1631 1700 Metoprolol Tartrate 50 MG BID 07/23 2200 AC 07/23 PO 2338 Prednisone 10 MG DAILY 07/27 1000 AC PO 07/28 958 Prednisone 20 MG DAILY 07/26 1000 AC PO 07/27 0859 Prednisone 30 MG DAILY 07/25 1000 AC PO 07/26 0859 Prednisone 40 MG TAPER 07/24 1000 CAN PO 07/28 958 Prednisone 40 MG DAILY 07/24 1000 AC PO 02/11 0959 Sucralfate 1 GM 4 TIMES/DAY 07/23 2200 AC 07/23 PO 2338 Last 24 Hrs of Lab/Andrea Results Last 24 Hrs of Labs/Mics: Laboratory Tests 07/24/17 0605: Anion Gap 11, Estimated GFR > 60, BUN/Creatinine Ratio 23.8, CBC w Diff NO MAN DIFF REQ, RBC 3.60 L, MCV 83.0, MCH 27.9, MCHC 33.6, RDW 13.3, MPV 8.2, Gran % 84.0 H, Lymphocytes % 13.7 L, Monocytes % 1.9, Eosinophils % 0.1, Basophils % 0.3, Absolute Granulocytes 3.7, Absolute Lymphocytes 0.6 L, Absolute Monocytes 0.1, Absolute Eosinophils 0, Absolute Basophils 0 07/24/17 0300: Troponin I Cancelled 07/23/172044: Troponin I < 0.01 Microbiology 07/23 2018 LOWER RESP: Respiratory Culture - COLB 07/23 2018 LOWER RESP: Gram Stain - COLB Assessment/Plan Assessment: Patient is a 86-year-old female with significant metastatic breast cancer to bone and brain, IBS, CAD, presented with progressive worsening of shortness of breath and cough, orthopnea status post lung and lymph node biopsy 2 weeks ago at [place]. Vital signs, physical examination are consistent with rhonchorous breath sounds on the lungs with 2+ pitting edema. Labs did show d-dimer elevation however CTA rule out PE. She did have some leukocytosis with elevated proBNP. Chest x-ray significant for bronchial wall thickening with increased streaky infiltrates in the right hilar region. CT agitation right upper lobe and right middle lobe nodular opacities and mild bronchiectasis -- which could signify acute pulmonary pathology. Plan Admit to general medicine floor Exertional dyspnea with orthopnea - likely infection versus cardiac etiology I'm concerned about a pneumonia in this patient given immunosuppressed state but at the same time more leaning towards bronchitis or biopsy related injury to the lung. She does have a which can exacerbate the clinical picture. * Start IV ceftriaxone and azithromycin * Obtain lower aspect cultures and blood cultures * Mucinex and Chloraseptic lozenges * Echo and cardiology consult * Consider short steroid taper after one dose of IV methylprednisone Continue home medications including aspirin 81 mg, amlodipine 10 mg, loperamide 2 mg, furosemide 20 mg, metoprolol tartrate 50 mg twice a day DVT prophylaxis SC heparin CODE STATUS Full code Problem List: 1. Hypothyroidism 2. History of breast cancer 3. History of TIA (transient ischemic attack) 4. HLD (hyperlipidemia) 5. HTN (hypertension) 6. Diabetes mellitus Pain Ratin Pain Location: n/a Pain Goal: Pain 4 or less Pain Plan: tylenol Tomorrow's Labs & Rationales: CBC, BEP Julia Hector MD 07/24/17 1504: Attending MD Review Statement Attending Statement Attending MD Statement: examined this patient, discuss w/resident/PA/INSEAM LEVELER, agreed w/resident/PA/INSEAM LEVELER, discussed with family, reviewed EMR data (avail), discussed with nursing, discussed with case mgmt, reviewed images, amended to note Attending Assessment/Plan: Patient seen and examined, overall feels okay. Feeling better than before. Still requiring oxygen. Vital Signs Date Time Temp Pulse Resp B/P B/P Pulse O2 O2 Flow FiO2 Mean Ox Delivery Rate 07/24 1414 97.7 71 18 122/64 92 07/24 1334 Room Air 07/24 1044 150/68 07/24 1044 150/68 07/24 1044 150/68 07/24 0716 97.8 74 20 138/66 94 07/24 0000 Nasal 2.0L Cannula 07/23 2338 75 144/60 07/23 2151 98.6 75 20 144/60 96 Nasal 2.0L Cannula 07/23 2100 Nasal 2.0L Cannula 07/23 2046 97.6 83 20 144/73 96 Nasal 1.0L Cannula 07/23 1802 97.3 84 18 148/62 98 Nasal 2.0L Cannula 07/23 1602 98.6 84 20 168/70 93 Nasal 2.0L Cannula 07/23 1556 80 19 140/71 95 Room Air on exam; aox3 nad. cv; s1, s2, rrr resp; + crackles left base. abd; soft, nt, bs+ ext;+ edema. Laboratory Tests 07/24 07/24 07/23 0605 0300 2045 Chemistry Sodium (137 - 145 mmol/L) 133 L Potassium (3.5 - 5.1 mmol/L) 4.7 Chloride (98 - 107 mmol/L) 92 L Carbon Dioxide (22 - 30 mmol/L) 29 Anion Gap (5 - 16) 11 BUN (7 - 17 mg/dL) 19 H Creatinine (0.5 - 1.0 mg/dL) 0.8 Estimated GFR (>60 ml/min) > 60 BUN/Creatinine Ratio (7 - 25 %) 23.8 Troponin I (< 0.11 ng/ml) Cancelled < 0.01 Hematology CBC w Diff NO MAN DIFF REQ WBC (4.8 - 10.8 /CUMM) 4.5 L RBC (4.20 - 5.40 /CUMM) 3.60 L Hgb (12.0 - 16.0 G/DL) 10.0 L Hct (37 - 47 %) 29.9 L MCV (81.0 - 99.0 FL) 83.0 MCH (27.0 - 31.0 PG) 27.9 MCHC (33.0 - 37.0 G/DL) 33.6 RDW (11.5 - 14.5 %) 13.3 Plt Count (130 - 400 /CUMM) 368 MPV (7.4 - 10.4 FL) 8.2 Gran % (42.2 - 75.2 %) 84.0 H Lymphocytes % (20.5 - 51.1 %) 13.7 L Monocytes % (1.7 - 9.3 %) 1.9 Eosinophils % (0 - 5 %) 0.1 Basophils % (0.0 - 2.0 %) 0.3 Absolute Granulocytes (1.4 - 6.5 /CUMM) 3.7 Absolute Lymphocytes (1.2 - 3.4 /CUMM) 0.6 L Absolute Monocytes (0.10 - 0.60 /CUMM) 0.1 Absolute Eosinophils (0.0 - 0.7 /CUMM) 0 Absolute Basophils (0.0 - 0.2 /CUMM) 0 A/P; 86 y/o F with pmh sig for past medical history significant for stage IV breast cancer with metastases to the bone and brain, TIA, hypothyroidism, diabetes mellitus, hypertension, irritable bowel syndrome, chronic lower extremity edema admitted with pneumonia. Status post recent lymph node biopsy. Currently patient getting treated with IV antibiotics as well as oral prednisone which will be tapered. Continue TRC nebs. She has steroid-induced hyperglycemia. Her Levemir will be adjusted. Continue sliding scale. Pulmonology has been consulted. DVT prophylaxis: Lovenox. Discussed with family at length at bedside.
[2017-07-24 08:32] LABS: ABSOLUTE BASOPHIL COUNT 0 /CUMM (0.0-0.2); ABSOLUTE EOSINOPHIL COUNT 0 /CUMM (0.0-0.7); ABSOLUTE GRANULOCYTE CT 3.7 /CUMM (1.4-6.5); ABSOLUTE LYMPH COUNT 0.6 /CUMM (1.2-3.4); ABSOLUTE MONOCYTE COUNT 0.1 /CUMM (0.10-0.60); BASOPHIL % 0.3 % (0.0-2.0); EOSINOPHIL % 0.1 % (0-5); HEMATOCRIT 29.9 % (37-47); MEAN CORPUSCULAR HGB 27.9 PG (27.0-31.0); MEAN CORPUSCULAR HGB CONC 33.6 G/DL (33.0-37.0); MEAN PLATELET VOLUME 8.2 FL (7.4-10.4); PLATELET COUNT 368 /CUMM (130-400); RBC DISTRIBUTION WIDTH 13.3 % (11.5-14.5); WHITE BLOOD CELL COUNT 4.5 /CUMM (4.8-10.8)
[2017-07-24 14:14] VITALS: BP 122/64
[2017-07-24 21:50] VITALS: BP 110/64
[2017-07-25 07:18] VITALS: BP 146/72
--- NOTE | 2017-07-25 08:45 | PN- Housestaff ---
Brock MASTERSON,Yandy 07/25/17 0845: Subjective Follow-up For: Shortness of breath, stage IV metastatic breast cancer with metastasis to bone Complaints: diarrhea, anxiety, pain Subjective: Patient was seen and examined at bedside. She said she had decreased sleep overnight because of anxiety. Complains of diarrhea [history of irritable bowel syndrome], anxiety [patient is on Ativan 0.5 mg daily]. She denies chest pain, shortness of breath, pain, palpitation, abdominal pain, weakness. Review of Systems Constitutional: Reports: no symptoms. Cardiovascular: Reports: no symptoms. Respiratory: Reports: no symptoms. Gastrointestinal: Reports: no symptoms. Genitourinary: Reports: no symptoms. Musculoskeletal: Reports: no symptoms. Objective Last 24 Hrs of Vital Signs/I&O Vital Signs Date Time Temp Pulse Resp B/P B/P Pulse O2 O2 Flow FiO2 Mean Ox Delivery Rate 07/25 0932 115/68 07/25 0932 115/68 07/25 0932 11568 07/25 0718 97.4 59 20 146/72 93 07/25 0000 Room Air 07/24 2307 73 110/64 07/24 2150 97.9 73 20 110/64 93 Room Air 07/24 2025 96 Room Air 07/24 1414 97.7 71 18 122/64 92 Intake & Output 07/25 1600 07/25 0800 07/25 0000 Intake Total 350 260 Output Total 300 Balance 50 260 Intake, IV 20 Intake, Oral 350 240 Number 3 0 Bowel Movements Output, Urine 300 Physical Exam General Appearance: Alert, Oriented X3, Cooperative, No Acute Distress Skin: No Rashes, No Breakdown HEENT: Atraumatic, PERRLA Neck: Supple, No JVD Cardiovascular: Normal S1, Normal S2, No Murmurs Lungs: Clear to Auscultation, Normal Air Movement Abdomen: Soft, No Tenderness, No Hepatospenomegaly Neurological: Normal Speech, Strength at 5/5 X4 Ext, Normal Tone, Sensation Intact Extremities: No Edema Current Medications: Current Medications Sig/Tushar Start time Last Medication Dose Route Stop Time Status Admin Albuterol Sulfate 3 ML EVERY 4 HRS/AWAKE .. 07/24 1345 AC INH Amlodipine Besylate 10 MG DAILY 07/24 1000 AC 07/25 PO 0932 Aspirin Buffered 81 MG DAILY 07/24 1000 AC 02/11 PO 0929 Atorvastatin Calcium 10 MG 1700 07/24 1700 AC 07/24 PO 1741 Azithromycin 500 MG DAILY 07/24 1000 AC 07/25 Dextrose/Water 250 ML IV 0935 Benzocaine/Menthol 1 MICHAEL Q2P PRN 07/23 2345 AC 07/24 PO 0555 Benzonatate 100 MG TID PRN 07/24 2100 AC PO Calcium/Vitamin D 1 TAB DAILY 07/23 1917 AC 07/24 PO 1041 Ceftriaxone Sodium 1,000 MG DAILY 07/24 1000 AC 07/25 IV 0934 Enoxaparin Sodium 40 MG DAILY 07/23 1848 AC 07/25 SC 0935 Furosemide 20 MG DAILY 07/24 1000 AC 07/25 PO 0932 Guaifenesin 600 MG Q12 07/23 2346 AC 07/25 PO 0934 Guaifenesin/ 10 ML Q6P PRN 07/24 2100 CAN Dextromethorphan PO Insulin Aspart 0 AT BEDTIME 07/24 2200 [facility] Insulin Aspart 0 AT BEDTIME 07/24 2200 AC 07/24 SC 2307 Insulin Aspart 0 TIDAC 07/24 1700 DC 07/24 SC 1741 Insulin Detemir 26 UNITS BID 07/25 1000 AC 07/25 SC 0959 Levothyroxine Sodium 0.137 MG DAILY AC 07/24 0700 AC 07/25 PO 0535 Loperamide HCl 2 MG Q6P PRN 07/25 1215 AC PO Lorazepam 0.5 MG AT BEDTIME 07/25 2200 AC PO 08/01 2159 Losartan Potassium 50 MG DAILY 07/24 1000 AC 07/25 PO 0932 Metoprolol Tartrate 50 MG BID 07/23 2200 AC 07/25 PO 0932 Prednisone 10 MG DAILY 07/27 1000 AC PO 07/28 0959 Prednisone 20 MG DAILY 07/26 1000 AC PO 07/27 0959 Prednisone 30 MG DAILY 07/25 1000 AC 07/25 PO 07/26 0959 0932 Prednisone 40 MG DAILY 07/24 1000 DC 07/24 PO 07/25 0959 1043 Tramadol HCl 50 MG Q6 PRN 07/25 1115 AC PO Tramadol HCl 50 MG ONCE ONE 07/25 0430 DC 07/25 PO 07/25 0431 0433 Last 24 Hrs of Lab/Andrea Results Last 24 Hrs of Labs/Mics: Microbiology 07/25 0330 STOOL: Clostridium difficile Toxin A & B - COMP 07/25 41 LOWER RESP: Respiratory Culture - COLB 07/25 41 LOWER RESP: Gram Stain - COLB Assessment/Plan Assessment: Patient is a 86-year-old female with significant metastatic breast cancer to bone and brain, IBS, CAD, presented with progressive worsening of shortness of breath and cough, orthopnea status post lung and lymph node biopsy 2 weeks ago at [place]. Chest x-ray significant for bronchial wall thickening with increased streaky infiltrates in the right hilar region. CT agitation right upper lobe and right middle lobe nodular opacities and mild bronchiectasis -- which could signify acute pulmonary pathology. Plan Admit to general medicine floor Exertional dyspnea with orthopnea - her shortness of breath is multifactorial. Pleural effusion/ Congestive heart failure. We will get a cardiology consult and echocardiogram. * ceftriaxone and azithromycin was started in view of questionable pneumonia. We will continue the same. * Follow up cultures and blood cultures * Mucinex and Chloraseptic lozenges * Echo and cardiology consult * Consider short steroid taper after one dose of IV methylprednisone Irritable bowel syndrome * Patient is on Imodium twice a day at home. We will continue the same. C. difficile sent. Continue home medications including aspirin 81 mg, amlodipine 10 mg, loperamide 2 mg, furosemide 20 mg, metoprolol tartrate 50 mg twice a day DVT prophylaxis SC heparin CODE STATUS Full code Problem List: 1. Metastatic breast cancer 2. HLD (hyperlipidemia) 3. HTN (hypertension) 4. Diabetes mellitus 5. Back pain Pain Ratin Pain Location: None Pain Goal: Remain pain free Pain Plan: tylenol Tomorrow's Labs & Rationales: cbc,bep Krunal MASTERSON,[facility] 07/25/17 1422: Attending MD Review Statement Attending Statement Attending MD Statement: examined this patient, discuss w/resident/PA/SAFETY LAMP KEEPER, agreed w/resident/PA/SAFETY LAMP KEEPER, discussed with family, reviewed EMR data (avail), discussed with nursing, discussed with case mgmt, reviewed images, amended to note Attending Assessment/Plan: Patient seen and examined, claims that she is feeling tired. Now not requiring any oxygen. Has been evaluated by pulmonology. Vital Signs Date Time Temp Pulse Resp B/P B/P Pulse O2 O2 Flow FiO2 Mean Ox Delivery Rate 07/25 0932 115/68 07/25 931 11507/25 11511 0718 97.4 59 20 146/72 93 07/25 0000 Room Air 07/24 2307 73 110/64 07/24 2150 97.9 73 20 110/64 93 Room Air 07/24 2024 96 Room Air on exam; aox3 nad. cv; s1, s2, rrr resp; + crackles left base. abd; soft, nt, bs+ ext;+ edema. No labs. A/P; 86 y/o F with pmh sig for past medical history significant for stage IV breast cancer with metastases to the bone and brain, TIA, hypothyroidism, diabetes mellitus, hypertension, irritable bowel syndrome, chronic lower extremity edema admitted with pneumonia. Status post recent lymph node biopsy. Patient evaluated by pulmonology today. At this point her antibiotics be continued and will follow-up on the cultures. She is on prednisone. Patient had some diarrhea for stool for C. difficile was checked and it is negative. She does have a IVF and takes Imodium as needed. This has been resumed. Demerol and Ativan has been resumed. Stockfeed Miller recommends evaluation from cardiology. Please consult Dr. Rock. Patient to get echocardiogram. Continue by mouth Lasix. DVT px: Lovenox.
--- NOTE | 2017-07-25 10:26 | Cons- Pulmonary ---
General Information and HPI Consulting Request Date of Consult: 07/25/17 Requested By: Lianna Reason for Consult: Shortness of breath History of Present Illness: Patient is 86-year-old with underlying coronary artery disease diabetes who be metastatic breast cancer status post biopsy diagnostic of pulmonary mediastinal breast cancer admitted with increasing shortness of breath and edema. CT scan shows nonspecific findings but no pleural effusions in the setting of an elevated BMP aortic stenosis and edema. Patient sputum is white without hemoptysis she's had no fever or chills. She was empirically started on antibiotics but has normal white count afebrile not requiring supplemental oxygen. There are no CAT scans for comparison Allergies/Medications Allergies: Coded Allergies: NO KNOWN ALLERGIES (07/23/17) Home Med List: Amlodipine Besylate 10 MG TABLET 1 TAB PO DAILY BP (Reported) Aspirin (Ecotrin*) 81 MG TABLET.DR 1 TAB PO DAILY HEART/BLOOD (Reported) Brimonidine Tartrate/Timolol (Combigan Eye Drops) 0.2 %-0.5 % DROPS 1 DROP OU BID BOTH EYES (Reported) Calcium Carbonate/Vitamin D3 (Calcium 600 + Vit D Caplet) (Unknown Strength) TABLET (Unknown Dose) PO TID SUPPLEMENT (Reported) Cyclosporine (Restasis) 1 EACH DROPERETTE 1 GTT OPH BID BOTH EYES (Reported) Ergocalciferol (Vitamin D2) (Vitamin D2) 50,000 UNIT CAPSULE 1 CAP PO Q10D SUPPLEMENT (Reported) Furosemide 20 MG TABLET 1 TAB PO DAILY DIURETIC (Reported) Ibuprofen (Advil Liqui-Gels) 200 MG CAPSULE 2 CAP PO DAILY PRN PAIN/ INFLAMMATION (Reported) Insulin Aspart (Novolog) 100 UNIT/ML VIAL DM (Reported) Insulin Detemir (Levemir) 100 UNIT/ML VIAL 46 UNITS SC QAM DM (Reported) Levothyroxine Sodium 137 MCG TABLET 1 TAB PO DAILY AC hypothyroidism Loperamide HCl (Imodium A-D) 2 MG TABLET 1-3 TAB PO DAILY PRN IBS (Reported) Losartan Potassium (Cozaar) 50 MG TABLET 1 TAB PO DAILY BP (Reported) Lovastatin 40 MG TABLET 1 TAB PO DAILY CHOLESTEROL (Reported) with food Metoprolol Tartrate (Lopressor) 50 MG TABLET 1 TAB PO BID BP (Reported) Nitroglycerin (Minitran) 1 EACH PATCH.TD24 1 PATCH TOP DAILY PRN CHEST PAIN ( Reported) Nitroglycerin (Minitran) 0.4 MG/HOUR PATCH.TD24 1 PATCH TOP DAILY PRN CHEST PAIN (Reported) Travoprost (Travatan Z) 5 ML DROPS 1 GTT OPH QPM BOTH EYES (Reported) Wheat Dextrin (Benefiber) (Unknown Strength) POWDER (Unknown Dose) PO DAILY GI (Reported) Review of Systems Review of Systems Constitutional: Denies: chills, fever. Cardiovascular: Reports: chest pain, edema, peripheral edema. Respiratory: Reports: cough, short of breath, sputum production. Denies: hemoptysis. GI: Denies: abdominal pain, diarrhea, melena. Past History Travel History Traveled to [place] past 21 day No Medical History Blood Transfusion Hx: No Neurological: vertigo, TIA, BELLSPALSY EENT: NONE Cardiovascular: CAD, hypertension, hyperlipidemia Respiratory: NONE Gastrointestinal: irritable bowel syndrome Hepatic: NONE Renal: NONE Musculoskeletal: NONE Psychiatric: anxiety Endocrine: hypothyroidism, IDDM Blood Disorders: NONE Cancer(s): BREAST CA WITH BONE METS FLEET ADMINISTRATIVE ASSISTANT/Reproductive: NONE Surgical History Surgical History: appendectomy, cholecystectomy, hysterectomy, RADHIKA, right lumpectomy with sentinel lymph node dissection. Family History Relations & Conditions If Any: FATHER FHx: stroke Psychosocial History Where Do You Live? Home Services at Home: None Smoking Status: Never Smoked ETOH Use: denies use Illicit Drug Use: denies illicit drug use Exam & Diagnostic Data Last 24 Hrs of Vital Signs/I&O Vital Signs Date Time Temp Pulse Resp B/P B/P Pulse O2 O2 Flow FiO2 Mean Ox Delivery Rate 07/25 0932 115/68 07/25 0932 115/68 07/25 0932 115/68 07/25 0718 97.4 59 20 146/72 93 07/25 0000 Room Air 07/24 2307 73 110/64 07/24 2150 97.9 73 20 110/64 93 Room Air 07/24 2025 96 Room Air 07/24 1414 97.7 71 18 122/64 92 07/24 1334 Room Air 07/24 1044 150/68 07/24 1044 150/68 07/24 1044 150/68 Intake & Output 07/25 1600 07/25 0800 07/25 0000 Intake Total 350 260 Output Total 300 Balance 50 260 Intake, IV 20 Intake, Oral 350 240 Number 3 0 Bowel Movements Output, Urine 300 Room air oxygen saturation 93% HEENT exam shows no adenopathy exam for chest shows absent wheezes there are occasional crackles diminished breath sounds the bases cardiac exam shows normal S1 and S2 with systolic ejection murmur abdomen is soft nontender extremities have symmetrical 1+ edema Last 48 Hrs of Labs/Andrea: Laboratory Tests 07/24/17 0605: Anion Gap 11, Estimated GFR > 60, BUN/Creatinine Ratio 23.8, CBC w Diff NO MAN DIFF REQ, RBC 3.60 L, MCV 83.0, MCH 27.9, MCHC 33.6, RDW 13.3, MPV 8.2, Gran % 84.0 H, Lymphocytes % 13.7 L, Monocytes % 1.9, Eosinophils % 0.1, Basophils % 0.3, Absolute Granulocytes 3.7, Absolute Lymphocytes 0.6 L, Absolute Monocytes 0.1, Absolute Eosinophils 0, Absolute Basophils 0 07/24/17 0300: Troponin I Cancelled 07/23/17 2045: Troponin I < 0.01 07/23/17 1043: D-Dimer High Sensitivty 808 H Microbiology 07/23 1045 NASOPHARYN: Influenza Virus A & B Rapid Smear - COMP Assessment/Plan Impression/Plan: 6-year-old woman with multiple medical problems primary of which is advancing metastatic breast cancer admitted with increased shortness of breath. Concern is raised over superimposed congestive heart failure in the setting of aortic stenosis elevated BNP and new pleural effusions and edema. Whether there is pneumonia present is unclear and comparison recent CAT scans would be helpful in determining extent of her metastatic disease. Recommendations: Obtain recent CAT scan images from [facility]. Continue antibiotics pending cultures. Repeat cardiac ultrasound. Cardiology evaluation for possible congestive heart failure. Mild negative fluid balance. Fully culture Consult Acknowledgment - Thank you for your consult request.
[2017-07-25 14:57] VITALS: BP 138/40
[2017-07-25 21:48] VITALS: BP 138/66
[2017-07-26 07:07] VITALS: BP 144/62
--- NOTE | 2017-07-26 08:13 | PN- Housestaff ---
Lela MASTERSON,Preethi 07/26/1713: Subjective Follow-up For: likely multifactorial dyspnea 2/2 questionable pneumonia, metastatic breast cancer, bronchitis, previous manipulation of lymphatic system with lymph node biopsy diabetes mellitus hypothyroidism Subjective: patient states she is feeling better today. she still has a wheezy cough and had a coughing fit during interview. she is sitting in a chair visiting with her daughter. Review of Systems Constitutional: Reports: no symptoms. Cardiovascular: Reports: no symptoms. Respiratory: Reports: cough, wheezing. Gastrointestinal: Reports: diarrhea. Genitourinary: Reports: no symptoms. Musculoskeletal: Reports: joint pain. Skin: Reports: no symptoms. Objective Last 24 Hrs of Vital Signs/I&O Vital Signs Date Time Temp Pulse Resp B/P B/P Pulse O2 O2 Flow FiO2 Mean Ox Delivery Rate 07/26 917 74 144/72 07/26 0818 74 144/72 07/26 0818 74 144/72 07/26 0707 97.8 71 20 144/62 94 07/26 0000 Room Air 07/25 2148 98.5 69 20 138/66 95 Room Air 07/25 2137 69 138/60 07/25 1901 94 Room Air 07/25 1457 97.6 68 20 138/40 93 Physical Exam General Appearance: Alert, Oriented X3, Cooperative, No Acute Distress Skin: No Rashes, No Breakdown, No Significant Lesion Neck: No JVD Cardiovascular: Regular Rate, Normal S1, Normal S2, No Murmurs Lungs: Clear to Auscultation, Normal Air Movement Abdomen: Normal Bowel Sounds, Soft, No Tenderness Neurological: Normal Speech Extremities: No Clubbing, No Cyanosis, No Edema, Normal Pulses, No Tenderness/ Swelling Vascular: Normal Pulses, Pulses Symmetrical Current Medications: Current Medications Sig/Tushar Start time Last Medication Dose Route Stop Time Status Admin Albuterol Sulfate 3 ML EVERY 4 HRS/AWAKE .. 07/24 1345 AC INH Amlodipine Besylate 10 MG DAILY 07/24 1000 AC 07/26 PO 09 Aspirin Buffered 81 MG DAILY 07/24 1000 AC 07/26 PO 0918 Atorvastatin Calcium 10 MG 1700 07/24 1700 AC 07/25 PO 1830 Azithromycin 500 MG DAILY 07/24 1000 AC 07/26 Dextrose/Water 250 ML IV 0919 Benzocaine/Menthol 1 MICHAEL Q2P PRN 07/23 2345 AC 07/24 PO 0555 Benzonatate 100 MG TID PRN 07/24 2100 AC PO Calcium/Vitamin D 1 TAB DAILY 07/23 1917 AC 07/26 PO 0918 Ceftriaxone Sodium 1,000 MG DAILY 07/24 1000 AC 07/26 IV 0919 Enoxaparin Sodium 40 MG DAILY 07/23 1848 AC 07/26 SC 0919 Furosemide 20 MG DAILY 07/24 1000 AC 07/26 PO 0918 Guaifenesin 600 MG Q12 07/23 2346 AC 07/26 PO 0918 Insulin Aspart 0 TIDAC 07/26 0800 AC SC Insulin Aspart 0 AT BEDTIME 07/24 2200 AC 07/25 SC 2138 Insulin Detemir 26 UNITS BID 07/25 1000 AC 07/26 SC 0937 Levothyroxine Sodium 0.137 MG DAILY AC 07/24 0700 AC 07/26 PO 0555 Loperamide HCl 2 MG Q6P PRN 07/25 1945 AC PO Loperamide HCl 2 MG Q6P PRN 07/25 1215 DC PO Lorazepam 0.5 MG AT BEDTIME 07/25 2200 AC 07/25 PO 08/01 2159 2140 Losartan Potassium 50 MG DAILY 07/24 1000 AC 07/26 PO 0918 Metoprolol Tartrate 50 MG BID 07/23 2200 AC 07/26 PO 0918 Prednisone 10 MG DAILY 07/27 1000 AC PO 07/28 0959 Prednisone 20 MG DAILY 07/26 1000 AC 07/26 PO 07/27 0959 0918 Prednisone 30 MG DAILY 07/25 1000 AC 07/25 PO 07/26 0959 0932 Prednisone 40 MG DAILY 07/24 1000 DC 07/24 PO 07/25 0959 1043 Tramadol HCl 50 MG Q6 PRN 07/25 1115 AC PO Last 24 Hrs of Lab/Andrea Results Last 24 Hrs of Labs/Mics: Laboratory Tests 07/26/17 0630: Sodium Pending, Potassium Pending, Chloride Pending, Carbon Dioxide Pending, Anion Gap Pending, BUN Pending, Creatinine Pending, BUN/Creatinine Ratio Pending , CBC w Diff Pending, WBC Pending, RBC Pending, Hgb Pending, Hct Pending, MCV Pending, MCH Pending, MCHC Pending, RDW Pending, Plt Count Pending, MPV Pending Microbiology 07/26 08 LOWER RESP: Respiratory Culture - RECD 07/26 0800 LOWER RESP: Gram Stain - RECD Assessment/Plan Assessment: Patient is a 86-year-old female with significant metastatic breast cancer to bone and brain, IBS, CAD, presented with progressive worsening of shortness of breath and cough, orthopnea status post extensive lung and lymph node biopsy 2 weeks ago at [facility]. Chest x-ray significant for bronchial wall thickening with increased streaky infiltrates in the right hilar region. CTA done for possible PE (elevated ddimer likely due to malignancy) showed right upper lobe and right middle lobe nodular opacities and mild bronchiectasis -- which could signify acute pulmonary pathology such as pneumonia or progression of her malignancy to include the lung. Bilateral pleural effusion was seen on the CTA. Interval development of lymphadenopathy in chest was seen. Plan Admitted to general medicine floor Exertional dyspnea with orthopnea - her shortness of breath is multifactorial. Patient came in with normal vitals and no white count. Flu was negative. Patient was never able to produce sputum for respiratory culture. She has a history of breast cancer that has potentially spread to the lung, recently had an extensive lymph node dissection and subsequently developed symptoms. Patient was covered on azithromycin and ceftriaxone since admission for potential pneumonia. Chest x-ray significant for bronchial wall thickening with increased streaky infiltrates in the right hilar region. CTA done for possible PE (elevated ddimer likely due to malignancy) showed right upper lobe and right middle lobe nodular opacities and mild bronchiectasis -- which could signify acute pulmonary pathology such as pneumonia or progression of her malignancy to include the lung. Bilateral pleural effusion was also seen on the CTA. Interval development of lymphadenopathy in chest was seen. BNP was found to be 1350. * Continue ceftriaxone and azithromycin was started in view of questionable pneumonia. * Unfortunately no blood cultures taken on admission and no sputum for respiratory cultures. * Mucinex and Chloraseptic lozenges * Dr. Pradhan, field foreman, reviewed her previous CT scans and notes from her biopsy and is suggesting cardiac consult and workup with echo. Patient just saw Dr. Rock a day before her admission. Apparently he did not suggest echo. Patient has in her echo last done in 2015. Repeat echo to evaluate for CHF and to see progression of . * As per mash filter press operator Dr. Plummer, we will start IV lasix 40mg daily to attempt to diurese whatever fluid may be contributing to these effusions. Patient is currently net positive 2900 yesterday and 2370 today. * Patient has wheezing so is on a short steroid taper after one dose of IV methylprednisone. Today is on 20mg prednisone. Irritable bowel syndrome * Patient is on Imodium twice a day at home. We will continue the same. C. difficile sent and negative. DM * Continue outpatient levemir 46 units daily Continue home medications including aspirin 81 mg, amlodipine 10 mg, loperamide 2 mg, furosemide 20 mg, metoprolol tartrate 50 mg twice a day DVT prophylaxis SC heparin CODE STATUS Full code Problem List: 1. Metastatic breast cancer 2. Hypoxia 3. Hx of TIA (transient ischemic attack) and stroke 4. Hypothyroidism 5. Diabetes mellitus 6. HTN (hypertension) Pain Ratin Pain Location: right hip bone pain Pain Goal: Pain 4 or less Pain Plan: tramadol Tomorrow's Labs & Rationales: katie Domi Carrillo 07/26/17 1349: Attending MD Review Statement Attending Statement Attending MD Statement: examined this patient, discuss w/resident/PA/CULTURE ROOM WORKER, agreed w/resident/PA/CULTURE ROOM WORKER, discussed with family, reviewed EMR data (avail), discussed with nursing, discussed with case mgmt, reviewed images, amended to note Attending Assessment/Plan: 86 y/o F with pmh sig for past medical history significant for stage IV breast cancer with metastases to the bone, lung and brain, TIA, hypothyroidism, diabetes mellitus, hypertension, irritable bowel syndrome, chronic lower extremity edema admitted with pneumonia. Status post recent lymph node biopsy. Patient evaluated by pulmonology . At this point her antibiotics be continued and will follow-up on the cultures. She is on prednisone. Patient had some diarrhea for stool for C. difficile was checked and it is negative. She does have a IVF and takes Imodium as needed. This has been resumed. Demerol and Ativan has been resumed. Multigrapher recommends evaluation from cardiology. Please consult Dr. Rock. f/u echocardiogram. Increase Lasix to 40 i/v as per cardiology. DVT px: Lovenox. f/ u previous records.
--- NOTE | 2017-07-26 10:10 | Patient Discharge Instructions ---
Discharge Instructions General Discharge Information You were seen/treated for: shortness of breath Special Instructions: 1. please follow up with your primary care physician in one week 2. please follow up with your oncologist Dr. Walker at [facility] in one week 3. please follow up with your corner former Dr. Rock in 2 weeks. Diet Continue normal diet: Yes Activity Full Activity/No Limits: Yes Acute Coronary Syndrome Inclusion Criteria At DC or during hospital stay patient has or had the following: ACS DIAGNOSIS No Discharge Core Measures Meds if any: Prescribed or Continued at Discharge Meds if any: NOT Prescribed or Continued at Discharge Congestive Heart Failure Inclusion Criteria At DC or during hospital stay patient has or had the following: CHF DIAGNOSIS No Discharge Core Measures Meds if any: Prescribed or Continued at Discharge Meds if any: NOT Prescribed or Continued at Discharge Cerebrovascular accident Inclusion Criteria At DC or during hospital stay patient has or had the following: CVA/TIA Diagnosis No Discharge Core Measures Meds if any: Prescribed or Continued at Discharge Meds if any: NOT Prescribed or Continued at Discharge Venous thromboembolism Inclusion Criteria VTE Diagnosis No VTE Type NONE VTE Confirmed by (Test) NONE Discharge Core Measures - Per Current guidelines, there needs to be overlap - treatment for the first 5 days of Warfarin therapy. - If discharged on Warfarin prior to 5 days of - overlap therapy, the patient will need to be - assessed for post discharge needs including - *Post discharge parental anticoagulation - *Warfarin and/or parental anticoagulation education - *Follow up date to check INR post discharge At least 5 days overlap therapy as Inpatient No Meds if any: Prescribed or Continued at Discharge Note: Overlap Therapy is Warfarin and Anticoagulant Meds if any: NOT Prescribed or Continued at Discharge
[2017-07-26 10:14] LABS: ABSOLUTE BASOPHIL COUNT 0 /CUMM (0.0-0.2); ABSOLUTE EOSINOPHIL COUNT 0 /CUMM (0.0-0.7); ABSOLUTE LYMPH COUNT 2.2 /CUMM (1.2-3.4); ABSOLUTE MONOCYTE COUNT 0.8 /CUMM (0.10-0.60); BASOPHIL % 0.3 % (0.0-2.0); EOSINOPHIL % 0.1 % (0-5); GRANULOCYTE % 67.1 % (42.2-75.2); HEMATOCRIT 30.8 % (37-47); MEAN CORPUSCULAR HGB 27.6 PG (27.0-31.0); MEAN CORPUSCULAR HGB CONC 33.1 G/DL (33.0-37.0); MEAN CORPUSCULAR VOLUME 83.3 FL (81.0-99.0); MEAN PLATELET VOLUME 7.5 FL (7.4-10.4); PLATELET COUNT 382 /CUMM (130-400); RBC DISTRIBUTION WIDTH 13.5 % (11.5-14.5); RED BLOOD CELL CT 3.69 /CUMM (4.20-5.40)
--- NOTE | 2017-07-26 11:51 | Cons- Cardiology ---
General Information and HPI Consulting Request Date of Consult: 07/26/17 Requested By: Lorena MASTERSON,Domi Reason for Consult: Possible congestive heart failure History of Present Illness: The patient is an 86-year-old female with history of stage IV breast cancer, TIA , diabetes mellitus, hypertension, and chronic lower extremity edema. She presented to the emergency department with shortness of breath and cough for 2 weeks with mild sore throat. Her breast cancer had been in remission for years until recently metastases to bone and brain were discovered. She notes recent shortness of breath with orthopnea and lower extremity edema. Her cough is productive of whitish sputum. She has not had any fevers. No chest pain. No syncope. No diaphoresis. No nausea or vomiting. Allergies/Medications Allergies: Coded Allergies: NO KNOWN ALLERGIES (07/23/17) Home Med List: Amlodipine Besylate 10 MG TABLET 1 TAB PO DAILY BP (Reported) Aspirin (Ecotrin*) 81 MG TABLET.DR 1 TAB PO DAILY HEART/BLOOD (Reported) Brimonidine Tartrate/Timolol (Combigan Eye Drops) 0.2 %-0.5 % DROPS 1 DROP OU BID BOTH EYES (Reported) Calcium Carbonate/Vitamin D3 (Calcium 600 + Vit D Caplet) (Unknown Strength) TABLET (Unknown Dose) PO TID SUPPLEMENT (Reported) Cyclosporine (Restasis) 1 EACH DROPERETTE 1 GTT OPH BID BOTH EYES (Reported) Ergocalciferol (Vitamin D2) (Vitamin D2) 50,000 UNIT CAPSULE 1 CAP PO Q10D SUPPLEMENT (Reported) Furosemide 20 MG TABLET 1 TAB PO DAILY DIURETIC (Reported) Ibuprofen (Advil Liqui-Gels) 200 MG CAPSULE 2 CAP PO DAILY PRN PAIN/ INFLAMMATION (Reported) Insulin Aspart (Novolog) 100 UNIT/ML VIAL DM (Reported) Insulin Detemir (Levemir) 100 UNIT/ML VIAL 46 UNITS SC QAM DM (Reported) Levothyroxine Sodium 137 MCG TABLET 1 TAB PO DAILY AC hypothyroidism Loperamide HCl (Imodium A-D) 2 MG TABLET 1-3 TAB PO DAILY PRN IBS (Reported) Losartan Potassium (Cozaar) 50 MG TABLET 1 TAB PO DAILY BP (Reported) Lovastatin 40 MG TABLET 1 TAB PO DAILY CHOLESTEROL (Reported) with food Metoprolol Tartrate (Lopressor) 50 MG TABLET 1 TAB PO BID BP (Reported) Nitroglycerin (Minitran) 1 EACH PATCH.TD24 1 PATCH TOP DAILY PRN CHEST PAIN ( Reported) Nitroglycerin (Minitran) 0.4 MG/HOUR PATCH.TD24 1 PATCH TOP DAILY PRN CHEST PAIN (Reported) Travoprost (Travatan Z) 5 ML DROPS 1 GTT OPH QPM BOTH EYES (Reported) Wheat Dextrin (Benefiber) (Unknown Strength) POWDER (Unknown Dose) PO DAILY GI (Reported) Current Medications: Current Medications Sig/Tushar Start time Last Medication Dose Route Stop Time Status Admin Albuterol Sulfate 3 ML EVERY 4 HRS/AWAKE .. 07/24 1345 AC INH Amlodipine Besylate 10 MG DAILY 07/24 1000 AC 07/26 PO 0918 Aspirin Buffered 81 MG DAILY 07/24 1000 AC 07/26 PO 0918 Atorvastatin Calcium 10 MG 1700 07/24 1700 AC 07/25 PO 1830 Azithromycin 500 MG DAILY 07/24 1000 AC 07/26 Dextrose/Water 250 ML IV 0919 Benzocaine/Menthol 1 MICHAEL Q2P PRN 07/23 2345 AC 07/24 PO 0555 Benzonatate 100 MG TID PRN 07/24 2100 AC PO Calcium/Vitamin D 1 TAB DAILY 07/23 1917 AC 07/24 PO 1041 Ceftriaxone Sodium 1,000 MG DAILY 07/24 1000 AC 07/26 IV 0919 Enoxaparin Sodium 40 MG DAILY 07/23 1848 AC 07/26 SC 0919 Furosemide 20 MG DAILY 07/24 1000 AC 07/26 PO 0918 Guaifenesin 600 MG Q12 07/23 2346 AC 07/26 PO 0918 Insulin Aspart 0 TIDAC 07/26 0800 AC SC Insulin Aspart 0 AT BEDTIME 07/24 2200 AC 07/25 SC 2138 Insulin Detemir 26 UNITS BID 07/25 1000 AC 07/26 SC 0937 Levothyroxine Sodium 0.137 MG DAILY AC 07/24 0700 AC 07/26 PO 0555 Loperamide HCl 2 MG Q6P PRN 07/25 1945 AC PO Loperamide HCl 2 MG Q6P PRN 07/25 1215 DC PO Lorazepam 0.5 MG AT BEDTIME 07/25 2200 AC 07/25 PO 08/01 2159 2140 Losartan Potassium 50 MG DAILY 07/24 1000 AC 07/26 PO 0918 Metoprolol Tartrate 50 MG BID 07/23 2200 AC 07/26 PO 0918 Prednisone 10 MG DAILY 07/27 1000 AC PO 07/28 958 Prednisone 20 MG DAILY 07/26 1000 AC 07/26 PO 07/27 0859 0918 Prednisone 30 MG DAILY 07/25 1000 DC 07/25 PO 07/26 0859 0932 Tramadol HCl 50 MG Q6 PRN 07/25 1115 AC PO Review of Systems Review of Systems: No rash. No tremor. No melena. No hemoptysis. All other systems were reviewed, and were noted to be negative. Past History Travel History Traveled to [place] past 21 day No Medical History Blood Transfusion Hx: No Neurological: vertigo, TIA, BELLSPALSY EENT: NONE Cardiovascular: CAD, hypertension, hyperlipidemia Respiratory: NONE Gastrointestinal: irritable bowel syndrome Hepatic: NONE Renal: NONE Musculoskeletal: NONE Psychiatric: anxiety Endocrine: hypothyroidism, IDDM Blood Disorders: NONE Cancer(s): BREAST CA WITH BONE METS IPHONE DEVELOPER/Reproductive: NONE Surgical History Surgical History: appendectomy, cholecystectomy, hysterectomy, RADHIKA, right lumpectomy with sentinel lymph node dissection. Family History Relations & Conditions If Any: FATHER FHx: stroke Psychosocial History Where Do You Live? Home Services at Home: None Smoking Status: Never Smoked ETOH Use: denies use Illicit Drug Use: denies illicit drug use Exam & Diagnostic Data Vital Signs and I&O Vital Signs Date Time Temp Pulse Resp B/P B/P Pulse O2 O2 Flow FiO2 Mean Ox Delivery Rate 07/26 0818 74 144/72 07/26 0918 74 144/72 07/26 0918 74 144/72 07/26 0800 96 Room Air 07/26 0707 97.8 71 20 144/62 94 07/26 0000 Room Air 07/25 2148 98.5 69 20 138/66 95 Room Air 07/25 2137 69 138/60 07/25 1901 94 Room Air 07/25 1457 97.6 68 20 138/40 93 Intake & Output 07/26 1600 07/26 0800 07/26 0000 07/25 1600 07/25 0800 07/25 0000 Intake Total 2320 350 260 Output Total 300 Balance 2320 50 260 Intake, IV 270 20 Intake, Oral 2050 350 240 Number 0 3 0 Bowel Movements Output, Urine 300 Physical Exam: Gen: The patient is in no acute distress HEENT: Normal nose, ears, and oropharynx. Pupils equal bilaterally. Conjunctiva normal. Neck: Supple with no JVD, no masses, and no thyromegaly Lungs: Bilateral rhonchi with normal respiratory effort Heart: RRR, S1, S2, 2/6 systolic murmur. No peripheral edema, 2+ pulses in the lower extremities bilaterally Abdomen: Soft, nontender, no masses. No hepatomegaly. No splenomegaly Extremities: No clubbing or cyanosis. Normal muscle strength in the upper and lower extremities. Skin: Normal skin turgor with no skin ulcers or lesions noted. Neuro: Cranial nerves intact. Sensation intact Psych: Alert and oriented 3 with appropriate affect Labs/Andrea Results: Laboratory Tests 07/26 0630 Chemistry Sodium (137 - 145 mmol/L) 140 Potassium (3.5 - 5.1 mmol/L) 3.8 Chloride (98 - 107 mmol/L) 96 L Carbon Dioxide (22 - 30 mmol/L) 36 H Anion Gap (5 - 16) 9 BUN (7 - 17 mg/dL) 18 H Creatinine (0.5 - 1.0 mg/dL) 0.7 Estimated GFR (>60 ml/min) > 60 BUN/Creatinine Ratio (7 - 25 %) 25.7 H Hematology CBC w Diff NO MAN DIFF REQ WBC (4.8 - 10.8 /CUMM) 9.0 RBC (4.20 - 5.40 /CUMM) 3.69 L Hgb (12.0 - 16.0 G/DL) 10.2 L Hct (37 - 47 %) 30.8 L MCV (81.0 - 99.0 FL) 83.3 MCH (27.0 - 31.0 PG) 27.6 MCHC (33.0 - 37.0 G/DL) 33.1 RDW (11.5 - 14.5 %) 13.5 Plt Count (130 - 400 /CUMM) 382 MPV (7.4 - 10.4 FL) 7.5 Gran % (42.2 - 75.2 %) 67.1 Lymphocytes % (20.5 - 51.1 %) 24.1 Monocytes % (1.7 - 9.3 %) 8.4 Eosinophils % (0 - 5 %) 0.1 Basophils % (0.0 - 2.0 %) 0.3 Absolute Granulocytes (1.4 - 6.5 /CUMM) 6.0 Absolute Lymphocytes (1.2 - 3.4 /CUMM) 2.2 Absolute Monocytes (0.10 - 0.60 /CUMM) 0.8 H Absolute Eosinophils (0.0 - 0.7 /CUMM) 0 Absolute Basophils (0.0 - 0.2 /CUMM) 0 Diagnostic Data EKG Results EKG tracings independently reviewed, and reveals normal sinus rhythm at 81, QTc 488 CXR Results 1. Interval worsening bronchial wall thickening consistent with reactive small airway disease or bronchitis. 2. Increasing streaky infiltrate or atelectasis right hilar/perihilar region. 3. Stable opacity retrocardiac region left base. 4. Stable discoid atelectasis right midlung. Other Results CTA chest: 1. There is no definite CTA evidence of acute pulmonary embolism. 2. Nodular patchy groundglass attenuation noted in the right upper lobe and to a lesser extent right middle lobe may represent evolving pneumonia in the appropriate clinical setting. Lobulated groundglass nodule right upper lobe measuring 0.9 cm may be secondary to the patchy nodular infiltrate or pneumonia. However, neoplastic process cannot be entirely excluded. Follow-up CT chest after treatment is therefore recommended. Stable granulomas right lung. 3. Fibrotic changes and mild bronchiectasis right upper lobe and right middle lobe. Interval development of bilateral pleural effusions, left greater than right. 4. Interval development of mild mediastinal and right hilar lymphadenopathy. Enlarged upper abdominal lymph nodes. These findings should also be assessed on follow-up CT chest PET/CT. 5. Subtle sclerotic changes right lateral aspect T9 vertebra. Sclerotic metastases cannot be entirely excluded. Age indeterminate mild compression with concavity of the superior endplate T12 vertebra. Assessment/Plan Assessment/Plan The patient is an 86-year-old female with history of stage IV breast cancer, diabetes mellitus, moderate aortic stenosis, hypertension admitted with increasing shortness of breath. Patchy groundglass opacities and bilateral pleural effusions are seen CT scan. CT scan findings raise the possibility of possible acute heart failure exacerbation in addition to malignancy and pulmonary issues. Recommendations: * Trial of Lasix 40 mg IV daily * Monitor input and output, and basic metabolic profile daily * Echocardiogram to reevaluate aortic stenosis in addition to systolic and diastolic function * Continue other cardiac medication Consult Acknowledgment - Thank you for your consult request.
[2017-07-26 13:46] VITALS: BP 132/62
[2017-07-26 22:56] VITALS: BP 130/78
[2017-07-27 06:51] VITALS: BP 172/68
--- NOTE | 2017-07-27 07:48 | PN- Housestaff ---
Ant Vaca MD,Ami 07/27/17 0748: Subjective Follow-up For: SOB: multifactorial dyspnea Pneumonia, metastatic breast cancer, bronchitis, previous manipulation of lymphatic system with lymph node biopsy diabetes mellitus hypothyroidism Subjective: Patient visited today, was lying in bed comfortably in no acute distress, was alert and oriented. No fever or chills, improved shortness of breathing, no chest pain, no other events. She was complaing of chronic right side leg pain. Selina is the main caregiver and noted that she was still having SOB with talking or walking, but was fine to discharge patient. Echo was done earlier today. Was planned to be discharged after ECho results. Review of Systems Constitutional: Reports: see HPI. Objective Last 24 Hrs of Vital Signs/I&O Vital Signs Date Time Temp Pulse Resp B/P B/P Pulse O2 O2 Flow FiO2 Mean Ox Delivery Rate 07/27 1328 98.5 63 20 144/70 95 Room Air 07/27 1127 97.8 65 20 152/70 97 Room Air 07/27 0920 70 172/68 07/27 0920 70 172/68 07/27 0920 70 172/68 07/27 0800 96 Room Air 07/27 0651 97.6 70 20 172/68 96 07/27 0000 Room Air 07/26 2256 97.7 77 18 130/78 95 Room Air 07/26 2132 82 168/68 07/26 2051 94 Room Air 07/26 1358 96 Room Air 07/26 1346 97.6 62 20 132/62 95 Intake & Output 07/27 1600 07/27 0800 07/27 0000 Intake Total 530 250 Output Total 100 Balance -100 530 250 Intake, IV 50 10 Intake, Oral 480 240 Number 0 0 Bowel Movements Output, Urine 100 Physical Exam General Appearance: Alert, Oriented X3, Cooperative, No Acute Distress Skin Temp/Moisture Exam: Warm/Dry Sepsis Skin Exam (color): Normal for Ethnicity HEENT: Atraumatic, EOMI, Mucous Membr. moist/pink Cardiovascular: Normal S1, Normal S2 Lungs: occasional crackles Abdomen: Soft, No Tenderness Current Medications: Current Medications Sig/Tushar Start time Last Medication Dose Route Stop Time Status Admin Albuterol Sulfate 3 ML EVERY 4 HRS/AWAKE .. 07/24 1345 AC INH Amlodipine Besylate 10 MG DAILY 07/24 1000 AC 07/27 PO 0920 Aspirin Buffered 81 MG DAILY 07/24 1000 AC 07/27 PO 0920 Atorvastatin Calcium 10 MG 1700 07/24 1700 AC 07/26 PO 1749 Azithromycin 500 MG DAILY 07/24 1000 AC 07/27 Dextrose/Water 250 ML IV 0924 Benzocaine/Menthol 1 MICHAEL Q2P PRN 07/23 2345 AC 07/24 PO 0555 Benzonatate 100 MG TID PRN 07/24 2100 AC PO Calcium/Vitamin D 1 TAB DAILY 07/23 1917 AC 07/27 PO 0920 Ceftriaxone Sodium 1,000 MG DAILY 07/24 1000 AC 07/27 IV 0925 Enoxaparin Sodium 40 MG DAILY 07/23 1848 AC 07/27 SC 0924 Furosemide 40 MG DAILY 07/26 1147 AC 07/27 IV 0925 Guaifenesin 600 MG Q12 07/23 2346 AC 07/27 PO 0920 Insulin Aspart 0 TIDAC 07/26 0800 AC 07/27 SC 1233 Insulin Aspart 0 AT BEDTIME 07/24 2200 AC 07/26 SC 2126 Insulin Detemir 26 UNITS BID 07/25 1000 AC 07/27 SC 0925 Levothyroxine Sodium 0.137 MG DAILY AC 07/24 0700 AC 07/27 PO 0608 Loperamide HCl 2 MG Q6P PRN 07/25 1945 AC 07/27 PO 1121 Lorazepam 0.5 MG AT BEDTIME 07/25 2200 AC 07/26 PO 08/01 2159 2125 Losartan Potassium 50 MG DAILY 07/24 1000 AC 07/27 PO 0920 Metoprolol Tartrate 50 MG BID 07/23 2200 AC 07/27 PO 0920 Potassium Chloride 40 MEQ ONCE ONE 07/27 1100 DC 07/27 PO 07/27 1101 1233 Potassium Chloride 40 MEQ ONCE ONE 07/27 0800 DC PO 07/27 0801 Prednisone 10 MG DAILY 07/27 1000 AC 07/27 PO 07/28 0959 0919 Prednisone 20 MG DAILY 07/26 1000 DC 07/26 PO 07/27 0959 0918 Tramadol HCl 50 MG Q6 PRN 07/25 1115 AC 07/27 PO 0309 Last 24 Hrs of Lab/Andrea Results Last 24 Hrs of Labs/Mics: Laboratory Tests 07/27/17 0620: CBC w Diff NO MAN DIFF REQ, RBC 3.64 L, MCV 83.1, MCH 27.9, MCHC 33.6, RDW 13.5 , MPV 7.3 L, Gran % 63.1, Lymphocytes % 27.7, Monocytes % 8.7, Eosinophils % 0.2, Basophils % 0.3, Absolute Granulocytes 6.2, Absolute Lymphocytes 2.7, Absolute Monocytes 0.9 H, Absolute Eosinophils 0, Absolute Basophils 0 Assessment/Plan Assessment: Patient is a 86-year-old female with significant metastatic breast cancer to bone and brain, IBS, CAD, presented with progressive worsening of shortness of breath and cough, orthopnea status post extensive lung and lymph node biopsy 2 weeks ago at [facility]. Chest x-ray significant for bronchial wall thickening with increased streaky infiltrates in the right hilar region. CTA done for possible PE (elevated ddimer likely due to malignancy) showed right upper lobe and right middle lobe nodular opacities and mild bronchiectasis -- which could signify acute pulmonary pathology such as pneumonia or progression of her malignancy to include the lung. Bilateral pleural effusion was seen on the CTA. Interval development of lymphadenopathy in chest was seen. Patient was admitted to general medicine floor for management of following conditions. Exertional dyspnea with orthopnea Shortness of breath is multifactorial. Patient came in with normal vitals and no white count. Flu was negative. Patient was never able to produce sputum for respiratory culture. She has a history of breast cancer that has potentially spread to the lung, recently had an extensive lymph node dissection and subsequently developed symptoms. Patient was covered on azithromycin and ceftriaxone since admission for potential pneumonia. Chest x-ray significant for bronchial wall thickening with increased streaky infiltrates in the right hilar region. CTA done for possible PE (elevated ddimer likely due to malignancy) showed right upper lobe and right middle lobe nodular opacities and mild bronchiectasis -- which could signify acute pulmonary pathology such as pneumonia or progression of her malignancy to include the lung. Bilateral pleural effusion was also seen on the CTA. Interval development of lymphadenopathy in chest was seen. BNP was found to be 1350. * Patient recieved ceftriaxone and azithromycin for management of pneumonia * Planned to discharge on oral augmentin to complete total of 7day treatment * Mucinex and Chloraseptic lozenges * Dr. Pardhan, sales representative metals, reviewed her previous CT scans and notes from her biopsy and is suggesting cardiac consult and workup with echo. Patient just saw Dr. Rock a day before her admission. * IV lasix 40mg daily was administered initially and planned to discharge on oral Lasix * Due to wheezing so is on a short steroid taper after one dose of IV methylprednisone. * Patient was instructed to follow in outpatient for possible thoracenthesis to detemine the etiology * Patient was also instructed to follow with PCP regarding possbile repeating the CXR * Pending Echo results and Lasix discharge dose patient was planned to be discharged today Irritable bowel syndrome * Patient is on Imodium twice a day at home. We continued the same. C. difficile sent and negative. DM * We continue outpatient levemir 46 units daily During admission we continue home medications including aspirin 81 mg, amlodipine 10 mg, loperamide 2 mg, furosemide 20 mg, metoprolol tartrate 50 mg twice a day DVT prophylaxis SC heparin CODE STATUS Full code Problem List: 1. Metastatic lung cancer (metastasis from lung to other site) 2. Pleural effusion Pain Ratin Pain Location: chronic right leg pain, not today Pain Goal: Pain 4 or less Pain Plan: Continue current plan Tomorrow's Labs & Rationales: To be discharged Discharge Plan Discharge Disposition: home Stable for Discharge? Yes Anticipated Discharge (Day): today Domi Carrillo 07/27/17 1407: Attending MD Review Statement Attending Statement Attending MD Statement: examined this patient, discuss w/resident/PA/MANUFACTURING INDUSTRIAL ENGINEER, agreed w/resident/PA/MANUFACTURING INDUSTRIAL ENGINEER, discussed with family, reviewed EMR data (avail), discussed with nursing, discussed with case mgmt, reviewed images, amended to note Attending Assessment/Plan: 86 y/o F with pmh sig for past medical history significant for stage IV breast cancer with metastases to the bone, lung and brain, TIA, hypothyroidism, diabetes mellitus, hypertension, irritable bowel syndrome, chronic lower extremity edema admitted with possible pneumonia and dyspnea of multifactorial origin. Status post recent lymph node biopsy. Patient evaluated by pulmonology and cardiology Dr Plummer. At this point her antibiotics be continued and will follow-up on the cultures. She is on taper prednisone. State Game Warden recommends evaluation from cardiology. Cardiology consulted. f/u echocardiogram. Lasix as per cardiology and PO at discharge. New right pleural effusion with right sided groundglass opacity. Discussed with daughter who wishes her to follow established care at [facility] for possible outpatient thoracentesis and options of her chemotherapy. Cont supportive care..
--- NOTE | 2017-07-27 08:11 | PN- Pulmonary ---
Subjective HPI/Critical Care Issues: Shortness of breath is improved patient has residual cough she is comfortable on room air cardiology evaluation reviewed Objective Current Medications: Current Medications Sig/Tushar Start time Last Medication Dose Route Stop Time Status Admin Albuterol Sulfate 3 ML EVERY 4 HRS/AWAKE .. 07/24 1345 AC INH Amlodipine Besylate 10 MG DAILY 07/24 1000 AC 07/26 PO 0918 Aspirin Buffered 81 MG DAILY 07/24 1000 AC 07/26 PO 0918 Atorvastatin Calcium 10 MG 1700 07/24 1700 AC 07/26 PO 1749 Azithromycin 500 MG DAILY 07/24 1000 AC 07/26 Dextrose/Water 250 ML IV 0919 Benzocaine/Menthol 1 MICHAEL Q2P PRN 07/23 2345 AC 07/24 PO 0555 Benzonatate 100 MG TID PRN 07/24 2100 AC PO Calcium/Vitamin D 1 TAB DAILY 07/23 1917 AC 07/24 PO 1041 Ceftriaxone Sodium 1,000 MG DAILY 07/24 1000 AC 07/26 IV 0919 Enoxaparin Sodium 40 MG DAILY 07/23 1848 AC 07/26 SC 0919 Furosemide 40 MG DAILY 07/26 1147 AC 07/26 IV 1300 Furosemide 20 MG DAILY 07/24 1000 DC 07/26 PO 0918 Guaifenesin 600 MG Q12 07/23 2346 AC 07/26 PO 2125 Insulin Aspart 0 TIDAC 07/26 0800 AC 07/26 SC 1749 Insulin Aspart 0 AT BEDTIME 07/24 2200 AC 07/26 SC 2126 Insulin Detemir 26 UNITS BID 07/25 1000 AC 07/26 SC 2125 Levothyroxine Sodium 0.137 MG DAILY AC 07/24 0700 AC 07/27 PO 0608 Loperamide HCl 2 MG Q6P PRN 07/25 1945 AC PO Lorazepam 0.5 MG AT BEDTIME 07/25 2200 AC 07/26 PO 08/01 2159 2125 Losartan Potassium 50 MG DAILY 07/24 1000 AC 07/26 PO 0918 Metoprolol Tartrate 50 MG BID 07/23 2200 AC 07/26 PO 2132 Potassium Chloride 40 MEQ ONCE ONE 07/27 0800 DC PO 07/27 0801 Prednisone 10 MG DAILY 07/27 1000 AC PO 07/28 0959 Prednisone 20 MG DAILY 07/26 1000 AC 07/26 PO 07/27 0959 0918 Prednisone 30 MG DAILY 02/11 1000 DC 07/25 PO 07/26 0959 0932 Tramadol HCl 50 MG Q6 PRN 07/25 1115 AC 07/27 PO 0309 Vital Signs & I&O Last 24 Hrs of Vitals and I&O: Vital Signs Date Time Temp Pulse Resp B/P B/P Pulse O2 O2 Flow FiO2 Mean Ox Delivery Rate 07/27 0651 97.6 70 20 172/68 96 07/27 0000 Room Air 07/26 2256 97.7 77 18 130/78 95 Room Air 07/26 2132 82 168/68 07/26 2051 94 Room Air 07/26 1358 96 Room Air 07/26 1346 97.6 62 20 132/62 95 07/26 0918 74 144/72 07/26 0918 74 144/72 07/26 0918 74 144/72 Intake & Output 07/27 1600 07/27 0800 07/27 0000 Intake Total 530 250 Output Total Balance 530 250 Intake, IV 50 10 Intake, Oral 480 240 Number 0 0 Bowel Movements Her oxygen saturation 96% on exam of her chest shows somewhat diminished breath sounds at the left base with occasional crackles there are no wheezes cardiac exam shows normal S1 and S2 with systolic ejection murmur Impression/Plan Impression/Plan Impression/Plan: 6-year-old woman with multiple medical problems primary of which is advancing metastatic breast cancer admitted with increased shortness of breath. Concern is raised over superimposed congestive heart failure in the setting of aortic stenosis elevated BNP and new pleural effusions and edema. Comparison with prior CT scans from [place] show pleural effusions to be new as R groundglass opacities Recommendations: . Continue antibiotics pending cultures. Repeat cardiac ultrasound. Cardiology evaluation for possible congestive heart failure reviewed Mild negative fluid balance. Fully culture if cardiac ultrasound unchanged and patient continues to do well she can be referred back [facility] oncology for decision regarding thoracentesis
[2017-07-27 08:37] LABS: ABSOLUTE BASOPHIL COUNT 0 /CUMM (0.0-0.2); ABSOLUTE EOSINOPHIL COUNT 0 /CUMM (0.0-0.7); ABSOLUTE GRANULOCYTE CT 6.2 /CUMM (1.4-6.5); ABSOLUTE LYMPH COUNT 2.7 /CUMM (1.2-3.4); ABSOLUTE MONOCYTE COUNT 0.9 /CUMM (0.10-0.60); BASOPHIL % 0.3 % (0.0-2.0); EOSINOPHIL % 0.2 % (0-5); GRANULOCYTE % 63.1 % (42.2-75.2); HEMATOCRIT 30.2 % (37-47); MEAN CORPUSCULAR HGB 27.9 PG (27.0-31.0); MEAN CORPUSCULAR HGB CONC 33.6 G/DL (33.0-37.0); MEAN CORPUSCULAR VOLUME 83.1 FL (81.0-99.0); MEAN PLATELET VOLUME 7.3 FL (7.4-10.4); PLATELET COUNT 364 /CUMM (130-400); RBC DISTRIBUTION WIDTH 13.5 % (11.5-14.5); RED BLOOD CELL CT 3.64 /CUMM (4.20-5.40); WHITE BLOOD CELL COUNT 9.8 /CUMM (4.8-10.8)
[2017-07-27] MEDS ORDERED: LASIX40 M1 PO ×2 (11:16→16:06)
[2017-07-27] MEDS ORDERED: AUGMENTIN 875-1 EACH PO ×2 (11:16→16:06)
[2017-07-27 11:27] VITALS: BP 152/70
[2017-07-27 13:28] VITALS: BP 144/70
--- NOTE | 2017-07-27 14:00 | Discharge Summary ---
Visit Information Visit Dates Admission Date: 07/23/17 Discharge Date: 07/27/17 Hospital Course Course Attending Physician: Domi Carrillo MD [facility]: Patient is an 86-year-old female with a past medical history significant for 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 Patient was diagnosed with breast cancer 14 years ago and was in remission until recently when she found that it had spread to the bone and brain. 2 weeks ago she had a chest lymph node biopsy of 100 samples taken at [place]. Following this is when her symptoms began. She saw her oncologist Dr. Walker a week ago. Her PCP is Dr. Choi. The patient has progesterone negative, estrogen positive breast cancer that has spread to the bone and brain. The patient is usually compliant with medications. The patient was to start exemestane this weekend. She had previously taken this medication for a 5 year course years ago and because of this medication she was successfully in remission for a number of years. When she had first found out about her breast cancer, she had 72 rounds of radiation and chemotherapy and was put on arimidex which made her extremely weak and nauseous. She was then started on exemestane and was in remission for 7 years. She saw her oncologist Dr. Walker a week ago. Her PCP is Dr. Choi. The patient has progesterone negative, estrogen positive breast cancer that has spread to the bone and brain. The patient is usually compliant with medications. The patient was to start exemestane this weekend. She had previously taken this medication for a 5 year course years ago and because of this medication she was successfully in remission for a number of years. When she had first found out about her breast cancer, she had 72 rounds of radiation and chemotherapy and was put on arimidex which made her extremely weak and nauseous. She was then started on exemestane and was in remission for 7 years. IN THE ED: EKG shows sinus rhythm at a rate of 75 with a QTC of 505 and poor R- wave progression also seen are J waves (see Tena waves). Vitals 96.8, 73 pulse, RR 18, 138/65. Labs were pertinent for sodium of 134, potassium 3.9, creatinine 0.8, calcium 8.4, albumin 3.1, BNP 1350, normal liver function tests, magnesium 1.6. Patient was found to be an influenza negative. Vitals were within normal limits with a oxygen saturation of 96% on 2 L nasal cannula. WBCs are 5.7 and hemoglobin is 10.6, patient has chronic anemia. D-dimer was found to be 808 with normal PT/INR and PTT. Physical exam is only positive for rhonchi and accessory muscle use. Patient is admitted to telemetry for evaluation and treatment of the following: Exertional dyspnea with orthopnea - her shortness of breath is multifactorial. Patient came in with normal vitals and no white count. Flu was negative. Patient was never able to produce sputum for respiratory culture. She has a history of breast cancer that has potentially spread to the lung, recently had an extensive lymph node dissection and subsequently developed symptoms. Patient was covered on azithromycin and ceftriaxone since admission for potential pneumonia. Chest x-ray significant for bronchial wall thickening with increased streaky infiltrates in the right hilar region. CTA done for possible PE (elevated ddimer likely due to malignancy) showed right upper lobe and right middle lobe nodular opacities and mild bronchiectasis -- which could signify acute pulmonary pathology such as pneumonia or progression of her malignancy to include the lung. Bilateral pleural effusion was also seen on the CTA. Interval development of lymphadenopathy in chest was seen. BNP was found to be 1350. -Ceftriaxone and azithromycin was started in view of questionable pneumonia. -Unfortunately no blood cultures taken on admission and no sputum for respiratory cultures.\-Mucinex and Chloraseptic lozenges -Dr. Pradhan, technology solutions architect, reviewed her previous CT scans and notes from her biopsy and is suggesting cardiac consult and workup with echo. Patient just saw Dr. Rock a day before her admission. Apparently he did not suggest echo. Patient has in her echo last done in 2016. Repeat echo to evaluate for CHF and to see progression of . -As per pool manager Dr. Plummer, we will start IV lasix 40mg daily to attempt to diurese whatever fluid may be contributing to these effusions. Patient is currently net positive 2900 on day one and 2370 the next day. -Patient has wheezing so is on a short steroid taper after one dose of IV methylprednisone. Today is on 20mg prednisone. #Abnormal electrocardiogram: J waves seen especially in lead II. These are pathological and associated with hypothermia, hypercalcemia, brain injury, vasospastic angina, and V. fib. The patient does have a history of metastases to the brain and this may be the cause of her abnormal EKG -Calcium level is normal #Breast cancer with metastases to the bone and brain and possibly lung -We consulted cardiology. Of note the patient would NOT like to see Dr. Freire. Apparently he was her first oncologist and she would not like to work with him and wants us to record this. -Follow up the results of her outpatient lung lymph node biopsy -Patient would benefit from a PET scan if she has already not had one. -We will try to obtain patient's medical records and scans from her cancer doctor, Dr. Walker at [place]. #Hypertension -Continue amlodipine 10 mg and Cozaar 50 mg daily and metoprolol 50 mg twice a day #Diabetes mellitus -Sugar on admission is 167 -Hemoglobin A1c -Patient is on Levemir 46 units every morning with NovoLog sliding scale #Irritable bowel syndrome -Patient is on Imodium twice a day at home for IBS. C. difficile sent and negative. Allergies: Coded Allergies: NO KNOWN ALLERGIES (07/23/17) Discharge Instructions General Discharge Information Code Status: Full Code Medications at Discharge Discharge Medications: Stop taking the following medications: Furosemide (Furosemide) 20 MG TABLET ORAL DAILY Continue taking these medications: Lovastatin (Lovastatin) 40 MG TABLET 1 Tablet ORAL DAILY Instructions: with food Comments: Last Taken: 07/26/17 Time: 1749PM Amlodipine Besylate (Amlodipine Besylate) 10 MG TABLET 1 Tablet ORAL DAILY Comments: Last Taken: 07/27/17 Time: 0925AM Metoprolol Tartrate (Lopressor) 50 MG TABLET 1 Tablet ORAL TWICE DAILY Comments: Last Taken: 07/27/17 Time: 0925AM Calcium Carbonate/Vitamin D3 (Calcium 600 + Vit D Caplet) (Unknown Strength) TABLET Unknown Dose ORAL THREE TIMES DAILY Comments: NOT GIVEN IN HOSPITAL Ergocalciferol (Vitamin D2) (Vitamin D2) 50,000 UNIT CAPSULE 1 Capsule ORAL Q10D Comments: NOT GIVEN IN HOSPITAL Losartan Potassium (Cozaar) 50 MG TABLET 1 Tablet ORAL DAILY Comments: Last Taken: 07/27/17 Time: 0925AM Nitroglycerin (Minitran) 1 EACH PATCH.TD24 1 PATCH On the skin DAILY as needed for CHEST PAIN Comments: NOT GIVEN IN HOSPITAL Cyclosporine (Restasis) 1 EACH DROPERETTE 1 Drop In the eye TWICE DAILY Comments: NOT GIVEN IN HOSPITAL Aspirin (Ecotrin*) 81 MG TABLET.DR 1 Tablet ORAL DAILY Comments: Last Taken: 07/27/17 Time: 0925AM Travoprost (Travatan Z) 5 ML DROPS 1 Drop In the eye Every night Comments: NOT GIVEN IN HOSPITAL Loperamide HCl (Imodium A-D) 2 MG TABLET 1-3 Tablet ORAL DAILY as needed for IBS Comments: Last Taken: 07/27/17 Time: 1120AM Levothyroxine Sodium (Levothyroxine Sodium) 137 MCG TABLET 1 Tablet ORAL DAILY BEFORE BREAKFAST Days = 30 Comments: Last Taken: 07/27/17 Time: 6AM Ibuprofen (Advil Liqui-Gels) 200 MG CAPSULE 2 Capsule ORAL DAILY as needed for PAIN/INFLAMMATION Comments: NOT GIVEN IN HOSPITAL Insulin Detemir (Levemir) 100 UNIT/ML VIAL 46 Units Inject into fatty tissue Every Morning Comments: Last Taken: 07/27/17 Time: 0925AM Brimonidine Tartrate/Timolol (Combigan Eye Drops) 0.2 %-0.5 % DROPS 1 DROP Both Eyes TWICE DAILY Comments: NOT GIVEN IN HOSPITAL Wheat Dextrin (Benefiber) (Unknown Strength) POWDER Unknown Dose ORAL DAILY Comments: NOT GIVEN IN HOSPITAL Nitroglycerin (Minitran) 0.4 MG/HOUR PATCH.TD24 1 PATCH On the skin DAILY as needed for CHEST PAIN Comments: NOT GIVEN IN HOSPITAL Insulin Aspart (Novolog) 100 UNIT/ML VIAL Units Inject into fatty tissue 3 TIMES DAILY BEFORE MEALS Comments: Last Taken: 07/27/17 Time: 1230PM Start taking the following new medications: Amoxicillin/Potassium Clav (Augmentin 875-125 Tablet) 875 MG-125 MG TABLET 1 Tablet ORAL TWICE DAILY Qty = 6 No Refills Instructions: . Comments: NOT GIVEN IN HOSPITAL Furosemide (Lasix) 40 MG TABLET 1 Tablet ORAL DAILY Qty = 30 No Refills Instructions: . Comments: Last Taken: 07/27/17 Time: 0925AM Attending MD Review Statement Documenting Attending: Domi Carrillo MD Other Findings: 86 y/o F with pmh sig for past medical history significant for stage IV breast cancer with metastases to the bone, lung and brain, TIA, hypothyroidism, diabetes mellitus, hypertension, irritable bowel syndrome, chronic lower extremity edema admitted with possible pneumonia and dyspnea of multifactorial origin. Status post recent lymph node biopsy. Patient evaluated by pulmonology and cardiology Dr Plummer. Patient recieved antibitoics for high clinical suspicion of pneumonia possible community acquired. She is on taper prednisone. Manager Market Development recommends evaluation from cardiology. Cardiology consulted. f/u echocardiogram with preserved EF. Lasix 40 mg daily as per cardiology at discharge. New right pleural effusion with right sided groundglass opacity. Discussed with daughter who wishes her to follow established care at [place] [facility] for possible outpatient thoracentesis and options of her chemotherapy. Patient wishes to leave for home. Patient is vitally and medically stable for discharge. FOLLOW UP PCP in 3-5 days Oncology in 1 week Cardiology in 2-3 weeks
--- NOTE | 2017-07-27 14:47 | PN- Cardiology ---
Subjective Subjective: Shortness of breath significantly improved. No chest pain. No palpitations. No diaphoresis. No shortness of breath Objective Vital Signs and I&Os Vital Signs Date Time Temp Pulse Resp B/P B/P Pulse O2 O2 Flow FiO2 Mean Ox Delivery Rate 07/27 1328 98.5 63 20 144/70 95 Room Air 07/27 1127 97.8 65 20 152/70 97 Room Air 07/27 0920 70 172/68 07/27 0920 70 172/68 07/27 0920 70 172/68 07/27 0800 96 Room Air 07/27 0651 97.6 70 20 172/68 96 07/27 0000 Room Air 07/26 2256 97.7 77 18 130/78 95 Room Air 07/26 2132 82 168/68 07/26 2051 94 Room Air Intake & Output 07/27 1600 07/27 0800 07/27 0000 07/26 1600 07/26 0800 07/26 0000 Intake Total 750 530 250 620 Output Total 100 125 Balance 650 530 250 495 Intake, IV 250 50 10 Intake, Oral 500 480 240 620 Number 1 0 0 1 Bowel Movements Output, Urine 100 125 Physical Exam: Gen: The patient is in no acute distress HEENT: Normal nose, ears, and oropharynx. Pupils equal bilaterally. Conjunctiva normal. Neck: Supple with no JVD, no masses, and no thyromegaly Lungs: Bilateral rhonchi with normal respiratory effort Heart: RRR, S1, S2, 2/6 systolic murmur. No peripheral edema, 2+ pulses in the lower extremities bilaterally Abdomen: Soft, nontender, no masses. No hepatomegaly. No splenomegaly Extremities: No clubbing or cyanosis. Normal muscle strength in the upper and lower extremities. Skin: Normal skin turgor with no skin ulcers or lesions noted. Neuro: Cranial nerves intact. Sensation intact Current Medications: Current Medications Sig/Tushar Start time Last Medication Dose Route Stop Time Status Admin Albuterol Sulfate 3 ML EVERY 4 HRS/AWAKE .. 07/24 1345 AC INH Amlodipine Besylate 10 MG DAILY 07/24 1000 AC 07/27 PO 0920 Aspirin Buffered 81 MG DAILY 07/24 1000 AC 07/27 PO 0920 Atorvastatin Calcium 10 MG 1700 07/24 1700 AC 07/26 PO 1749 Azithromycin 500 MG DAILY 07/24 1000 AC 07/27 Dextrose/Water 250 ML IV 0924 Benzocaine/Menthol 1 MICHAEL Q2P PRN 07/23 2345 AC 07/24 PO 0555 Benzonatate 100 MG TID PRN 07/24 2100 AC PO Calcium/Vitamin D 1 TAB DAILY 07/23 1917 AC 07/27 PO 0920 Ceftriaxone Sodium 1,000 MG DAILY 07/24 1000 AC 07/27 IV 0925 Enoxaparin Sodium 40 MG DAILY 07/23 1848 AC 07/27 SC 0924 Furosemide 40 MG DAILY 07/26 1147 AC 07/27 IV 0925 Guaifenesin 600 MG Q12 07/23 2346 AC 07/27 PO 0920 Insulin Aspart 0 TIDAC 07/26 0800 AC 07/27 SC 1233 Insulin Aspart 0 AT BEDTIME 07/24 2200 AC 07/26 SC 2126 Insulin Detemir 26 UNITS BID 07/25 1000 AC 07/27 SC 0925 Levothyroxine Sodium 0.137 MG DAILY AC 07/24 0700 AC 07/27 PO 0608 Loperamide HCl 2 MG Q6P PRN 07/25 1945 AC 07/27 PO 1121 Lorazepam 0.5 MG AT BEDTIME 07/25 2200 AC 07/26 PO 08/01 2159 2125 Losartan Potassium 50 MG DAILY 07/24 1000 AC 07/27 PO 0920 Metoprolol Tartrate 50 MG BID 07/23 2200 AC 07/27 PO 0920 Potassium Chloride 40 MEQ ONCE ONE 07/27 1100 DC 07/27 PO 07/27 1101 1233 Potassium Chloride 40 MEQ ONCE ONE 07/27 0800 DC PO 07/27 0801 Prednisone 10 MG DAILY 07/27 1000 AC 07/27 PO 07/28 0959 0919 Prednisone 20 MG DAILY 07/26 1000 DC 07/26 PO 07/27 0959 0918 Tramadol HCl 50 MG Q6 PRN 07/25 1115 AC 07/27 PO 0309 Results Last 48 Hrs of Labs/Mics: Laboratory Tests 07/27/17 0620: CBC w Diff NO MAN DIFF REQ, RBC 3.64 L, MCV 83.1, MCH 27.9, MCHC 33.6, RDW 13.5 , MPV 7.3 L, Gran % 63.1, Lymphocytes % 27.7, Monocytes % 8.7, Eosinophils % 0.2, Basophils % 0.3, Absolute Granulocytes 6.2, Absolute Lymphocytes 2.7, Absolute Monocytes 0.9 H, Absolute Eosinophils 0, Absolute Basophils 0 07/26/17 0630: Anion Gap 9, Estimated GFR > 60, BUN/Creatinine Ratio 25.7 H, CBC w Diff NO MAN DIFF REQ, RBC 3.69 L, MCV 83.3, MCH 27.6, MCHC 33.1, RDW 13.5, MPV 7.5, Gran % 67.1, Lymphocytes % 24.1, Monocytes % 8.4, Eosinophils % 0.1, Basophils % 0.3, Absolute Granulocytes 6.0, Absolute Lymphocytes 2.2, Absolute Monocytes 0.8 H, Absolute Eosinophils 0, Absolute Basophils 0 Assessment/Plan Assessment/Plan Assessment: 1. Stage IV breast cancer 2. Moderate aortic stenosis 3. Hypertension 4. Possible pneumonia 5. Possible acute on chronic diastolic heart failure Plan: * Echocardiogram pending * Possible discharge to home after echocardiogram * Would discharge on oral Lasix 40 mg daily. * Follow up in the office with Dr. Rock. Continue telemetry? Yes
--- NOTE | 2017-07-28 07:52 | ECHOCARDIOGRAM REPORT ---
EVARISTOJERRICA Age: 86 : 1930 Gender: F Exam Date: 07/27/2017 10:38 Exam Location: [address] [place] [address] Ht (in): 62 Wt (lb): 167 BSA: 1.85 BP: 172 / 68 Ordering Physician: Preethi Vogel MD Referring Physician: Preethi Vogel MD Technologist: Aram France [facility] Room Number: 210-1 Indications: CONGENITAL HEART DISEASE Rhythm: Sinus Technical Quality: Fair FINDINGS Left Ventricle Normal size left ventricle. No obvious regional wall motion abnormalities. Normal left ventricular ejection fraction estimated at 55-60%. Right Ventricle Right ventricle not well visualized, grossly normal. Right Atrium Normal right atrial size. Left Atrium Left atrial size at the upper limits of normal. Mitral Valve Mitral valve thickened. Mild mitral annular calcification. Trace mitral regurgitation. Aortic Valve Trileaflet aortic valve. Diffuse thickening of the aortic valve cusps with reduced excursion. [id number] aortic regurgitation. Tricuspid Valve Tricuspid valve not well visualized, grossly normal. Mild-to- moderate tricuspid regurgitation. Right ventricular systolic pressure estimated to be elevated at 50 mmHg. Pulmonic Valve Structurally normal pulmonic valve. Mild pulmonic regurgitation. Pericardium No pericardial effusion. Great Vessels Normal size aortic root and proximal ascending aorta. CONCLUSIONS 1. Mild to moderate aortic stenosis is present 2. Mitral leaflet thickening is present with mild anular calcification and miinimal mitral insufficiency. 3. There is no pericardial fluid present. 4. The left ventricular chamber size and systolic function appear normal with no resting wall motion abnormalities. 5. Mild to moderate tricuspid insufficiency is present with mild pulmonic insufficiency and pulmonary hypertension with an estimated RV systolic pressure of 50 mmHg Froy Rock M.D. (Electronically Signed) Final Date: 28 July 2017 07:51 MEASUREMENTS (Male / Female) Normal Values 2D ECHO LV Diastolic Diameter PLAX 5.3 cm 4.2 - 5.9 / 3.9 - 5.3 cm LV Systolic Diameter PLAX 3.6 cm 2.1 - 4.0 cm LV Fractional Shortening PLAX 32.1 % 25 - 46 % LV Ejection Fraction 2D Teich 59.8 % IVS Diastolic Thickness 1.0 cm LVPW Diastolic Thickness 1.1 cm LV Relative Wall Thickness 0.4 RV Internal Dim ED PLAX 3.6 cm 1.9 - 3.8 cm LVOT Diameter 2.1 cm Aortic Root Diameter 2.5 cm LA Systolic Diameter LX 3.7 cm 3.0 - 4.0 / 2.7 - 3.8 cm DOPPLER AV Peak Velocity 212.0 cm/s AV Peak Gradient 18.0 mmHg AV Mean Velocity 147.0 cm/s AV Mean Gradient 10.0 mmHg AV Velocity Time Integral 58.7 cm LVOT Peak Velocity 68.4 cm/s LVOT Peak Gradient 1.9 mmHg LVOT Mean Velocity 44.7 cm/s LVOT Mean Gradient 1.0 mmHg LVOT Velocity Time Integral 18.9 cm LVOT Stroke Volume 65.5 cm AV Area Cont Eq vti 1.1 cm AV Area Cont Eq pk 1.1 cm MV Peak Velocity 110.0 cm/s MV Peak Gradient 4.8 mmHg MV Mean Velocity 66.6 cm/s MV Mean Gradient 2.0 mmHg Mitral E Point Velocity 101.0 cm/s Mitral A Point Velocity 64.7 cm/s Mitral E to A Ratio 1.6 MV PHT Velocity 126.0 cm/s MV Deceleration Dickey 308.0 cm/s MV Pressure Half Time 122.7 ms MV Area PHT 1.8 cm MV Deceleration Time 197.0 ms TR Peak Velocity 350.0 cm/s TR Peak Gradient 49.0 mmHg Right Atrial Pressure 10.0 mmHg Pulmonary Artery Systolic Pressu 59.0 mmHg Right Ventricular Systolic Press 59.0 mmHg PV Peak Velocity 84.1 cm/s PV Peak Gradient 2.8 mmHg PV Mean Velocity 65.6 cm/s PV Mean Gradient 2.0 mmHg PV Velocity Time Integral 25.8 cm LV E' Lateral Velocity 9.2 cm/s Mitral E to LV E' Lateral Ratio 11.0 LV E' Septal Velocity 4.8 cm/s Mitral E to LV E' Septal Ratio 21.1
== END 2017-07-27 17:50 | DRG 193 ==
LOC: ERH 09:29 → 2NB 17:39 → ERHI 17:39 → ENRESERV 19:56 → ENTRNSPT 20:17 → 2NB 20:57 → CMPTRNSPT 21:03 → 2NB 07-26 08:19 → ENTRNSPT 07-27 17:48 → 2NB 07-27 17:50 → CMPTRNSPT 07-27 18:42
PROVIDERS: Internal Medicine; Physician Assistant Medical; Student in an Organized Health Care Education/Training Program
DX: J18.9 Pneumonia, unspecified organism (principal); J96.01 Acute respiratory failure with hypoxia; C79.51 Secondary malignant neoplasm of bone; C79.31 Secondary malignant neoplasm of brain; J91.8 Pleural effusion in other conditions classified elsewhere; E11.8 Type 2 diabetes mellitus with unspecified complications; Z79.4 Long term (current) use of insulin; I10 Essential (primary) hypertension; Z86.000 Personal history of in-situ neoplasm of breast; J20.9 Acute bronchitis, unspecified; E03.9 Hypothyroidism, unspecified
CPT/HCPCS: 2NBSP; 71045; 82436; 87070; 87147; 87804; 87804-59; 93005; 93010; 93306; 96374; 96375; 99291; J0131; J0456; J0696; J1642; J1650; J1940; J2920; J2930; J7060; J7512